=== PATIENT | female | born 1940 | race Caucasian/White ===

== ENCOUNTER 2019-03-17 12:44 | Emergency (ER) | payer OTHER, BC ==
--- OUTSIDE RECORDS SUMMARY | 2019-03-17 12:50 | XMS REPORT ---
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 Active Problem Elevated red blood cell count R71.8 Active Problem Hypothyroidism, unspecified type E03.9 Active Problem Body mass index (BMI) of 40.0-44.9 Z68.41 Active in adult Assessment Hypothyroidism, unspecified type E03.9 Active Problem Depression screening Z13.31 Active Assessment Elevated red blood cell count R71.8 Active Assessment Vitamin D deficiency E55.9 Active Problem Morbid obesity E66.01 Active Problem Mixed hyperlipidemia E78.2 Active Problem Essential hypertension I10 Active Problem Uncontrolled type 2 diabetes E11.65 Active mellitus with hyperglycemia Problem Abnormal renal function test R94.4 Active Assessment Abnormal renal function test R94.4 Active Assessment Essential hypertension I10 Active Assessment Mixed hyperlipidemia E78.2 Active Assessment Uncontrolled type 2 diabetes E11.65 Active mellitus with hyperglycemia Problem Glaucoma H40.9 Active Problem Psoriasis L40.9 Active Assessment Body mass index (BMI) of 40.0-44.9 Z68.41 Active in adult Problem Vitamin D deficiency E55.9 Active Assessment Morbid obesity E66.01 Active Problem Seasonal allergies J30.2 Active Problem History of breast cancer Z85.3 Active Medications Medication Code Code Instructions Start End Status Dosage System Date Date Amlodipine Besylate [facility] 42516888221 10 MG Orally Active 1 tablet Once a day Multivitamin [facility] 18434-38477 - Orally Active not defined FreeStyle Wilfredo 14 [facility] 39400881505 - subcutaneous April Active as directed Day Sensor Test BS once 18, daily 2018 Lipitor [facility] 93960638462 20 MG Orally Active 1 tablet in Once a day evening Flonase ND 06432328466 50 MCG/ACT Active 2 sprays in Nasally Once a each nostril day Synthroid ND 37657987249 100 MCG Orally Active 1 tablet on Once a day an empty stomach in the morning Loratadine [facility] 90094907241 10 MG Orally Active 1 tablet Once a day Triamcinolone [facility] 74048345408 0.1 % Active 1 Acetonide Externally application Twice a day to affected area Remeven [facility] 94025241207 50 % Active 1 Externally application Once a day to affected area as needed FreeStyle Wilfredo [facility] 50300085725 - subcutaneous April Active as directed Sensor System Test BS once 18, daily and prn 2019 Metoprolol Tartrate [facility] 47934923852 50 MG Orally Active 1 tablet Twice a day with food Hydrochlorothiazide [facility] 82858080479 25 MG Orally Active 1 tablet in Once a day the morning MetFORMIN HCl ER [facility] 31295909248 500 MG Orally Active 1 tablet Once a day for diabetes Vitamin D [facility] 74755840992 1000 UNIT Active 1 tablet Orally Once a day Aspir-Low [facility] 60304656699 81 MG Orally Active 1 tablet Once a day Owdxqaks-Jwjfqsxqg-Wy [facility] 45753287560 3.5-81512-5.1 Active 1 drop into xameth Ophthalmic affected eye Four times a day Results No Known Results Summary Purpose eClinicalWorks Submission
[2019-03-17] MEDS ORDERED: HYDROCODONE/APAP 10/325 TAB ONE (14:15)
[2019-03-17] MEDS ORDERED: ONDANSETRON 4 MG (ODT) TAB ONE (14:16)
--- NOTE | 2019-03-17 14:35 | RAD REPORT ---
EXAM DESCRIPTION: RAD - Shoulder Left 2 View - 03/17/2019 2:12 pm CLINICAL HISTORY: Left shoulder pain status post fall FINDINGS: Mildly displaced humeral neck fracture No dislocation. Osteoporosis
--- NOTE | 2019-03-17 15:10 | ER ---
Nurse's Notes [facility] Name: Alissa Jewell Age: 78 yrs Sex: Female : 1940 Arrival Date: 03/17/2019 Time: 12:49 Bed 13 Private MD: Diagnosis: Humerus Fracture Presentation: 03/17 13:05 Presenting complaint: Patient states: i was coming in my door with a rolling basket, tw2 and i do this all the time after i shop for groceries and i turned to shut the door, and the next thing i know i was on my back i must have tripped over part of the basket, denies LOC. i landed right on my shoulder. Transition of care: patient was not received from another setting of care. Onset of symptoms was March 17, 2019. Risk Assessment: Do you want to hurt yourself or someone else? Patient reports no desire to harm self or others. Initial Sepsis Screen: Does the patient meet any 2 criteria? No. Patient's initial sepsis screen is negative. Does the patient have a suspected source of infection? No. Patient's initial sepsis screen is negative. Care prior to arrival: None. 13:05 Method Of Arrival: Ambulatory tw2 13:05 Acuity: GERA 4 tw2 Triage Assessment: 13:07 General: Appears in no apparent distress. uncomfortable, obese, well groomed, Behavior tw2 is calm, cooperative, appropriate for age. Pain: Complains of pain in LEFT shoulder. Historical: - Allergies: 13:10 PENICILLINS; tw2 - Home Meds: 13:10 metoprolol tartrate 50 mg Oral tab 1 tab 2 times per day [Active]; levothyroxine 100 tw2 mcg tab 1 tab once daily [Active]; hydrochlorothiazide 25 mg Oral tab 1 tab once daily [Active]; amlodipine 10 mg tab 1 tab once daily [Active]; atorvastatin 20 mg oral tab 1 tab once daily [Active]; - PMHx: 13:10 Hypertension; Hypothyroidism; tw2 - Immunization history:: Adult Immunizations. - Coronavirus screen:: The patient has NOT traveled to [place], [place], or [place] in the past 14 days. - Social history:: Smoking status: . - Ebola Screening: : Patient denies travel to an Ebola-affected area in the 21 days before illness onset. Screenin:26 Abuse screen: Denies threats or abuse. Denies injuries from another. Nutritional ca1 screening: No deficits noted. Tuberculosis screening: No symptoms or risk factors identified. Fall Risk Fall in past 12 months (25 points). Total Escalante Fall Scale indicates. Assessment: 13:26 General: Appears in no apparent distress. comfortable, Behavior is calm, cooperative, ca1 appropriate for age. Pain: Complains of pain in anterior aspect of left shoulder Pain currently is 8 out of 10 on a pain scale. Neuro: Level of Consciousness is awake, alert, obeys commands, Oriented to person, place, time, situation, Appropriate for age. Derm: Skin is intact, is healthy with good turgor, Skin is pink, warm \T\ dry. Musculoskeletal: Circulation, motion, and sensation intact. Capillary refill < 3 seconds, Range of motion: limited in left shoulder. 14:31 Reassessment: Patient appears in no apparent distress at this time. Patient and/or ca1 family updated on plan of care and expected duration. Pain level reassessed. Patient is alert, oriented x 3, equal unlabored respirations, skin warm/dry/pink. Pt from Xray. 15:25 Reassessment: Patient is alert, oriented x 3, equal unlabored respirations, skin ca1 warm/dry/pink. Vital Signs: 13:07 BP 152 / 89; Pulse 58; Resp 17; Temp 97.9(TE); Pulse Ox 95% on R/A; Weight 90.72 kg tw2 (R); Height 5 ft. 1 in. (154.94 cm); Pain 8/10; 15:25 BP 142 / 86; Pulse 61; Resp 17 S; Pulse Ox 96% on R/A; ca1 13:07 Body Mass Index 37.79 (90.72 kg, 154.94 cm) tw2 13:07 when i start to move it it goes to a 10 tw2 ED Course: 12:49 Patient arrived in ED. rg4 13:07 Triage completed. tw2 13:07 Arm band placed on. tw2 13:13 Jermaine Starks PA is PHCP. rosario 13:13 Yeyo Begum MD is Attending Physician. [facility] 13:20 Meche Crowley RN is Primary Nurse. ca1 13:26 Patient has correct armband on for positive identification. Bed in low position. Call ca1 light in reach. Side rails up X 1. Pulse ox on. NIBP on. 13:26 No provider procedures requiring assistance completed. Patient did not have IV access ca1 during this emergency room visit. 14:58 Sling applied to left arm. ca1 Administered Medications: 14:30 Drug: Zofran 4 mg Route: PO; ca1 15:00 Follow up: Response: No adverse reaction; Nausea is decreased ca1 14:32 Drug: Leroy 10 mg-325 mg 1 tabs {Note: RASS - 0.} Route: PO; ca1 15:00 Follow up: Response: No adverse reaction; Pain is decreased; RASS: Alert and Calm (0) ca1 Outcome: 15:10 Discharge ordered by . rosario 15:36 Discharged to home ambulatory, with family. ca1 15:36 Condition: stable 15:36 Discharge instructions given to patient, family, Instructed on discharge instructions, follow up and referral plans. no drinking with medication, no driving heavy equipment, medication usage, Demonstrated understanding of instructions, follow-up care, medications, Prescriptions given X 1. 15:37 Patient left the ED. ca1 Signatures: Jermaine Starks PA PA jmm Wise, Tara, RN RN tw2 [facility] Meche Crowley RN RN ca1
--- NOTE | 2019-03-17 15:11 | EDPHYS ---
Physician Documentation [facility] Name: Alissa Jewell Age: 78 yrs Sex: Female : 1940 Arrival Date: 03/17/2019 Time: 12:49 Bed 13 Private MD: ED Physician Yeyo Begum HPI: 03/17 13:35 This 78 yrs old Female presents to ER via Ambulatory with complaints of jmm Shoulder Pain. 13:35 The patient or guardian complains of an injury, pain. Onset: The symptoms/episode jmm began/occurred acutely, just prior to arrival. Modifying factors: the symptoms are alleviated by remaining still, The symptoms are aggravated by movement. Associated signs and symptoms: Pertinent positives: Numbness in left hand. This is a 78 year old female with a history of htn, hypothyroidism that presents to the ED with complaints of left shoulder pain after fall just prior to arrival. Patient fell from a standing position. Denies other injury. . Historical: - Allergies: 13:10 PENICILLINS; tw2 - Home Meds: 13:10 metoprolol tartrate 50 mg Oral tab 1 tab 2 times per day [Active]; levothyroxine 100 tw2 mcg tab 1 tab once daily [Active]; hydrochlorothiazide 25 mg Oral tab 1 tab once daily [Active]; amlodipine 10 mg tab 1 tab once daily [Active]; atorvastatin 20 mg oral tab 1 tab once daily [Active]; - PMHx: 13:10 Hypertension; Hypothyroidism; tw2 - Immunization history:: Adult Immunizations. - Coronavirus screen:: The patient has NOT traveled to [place], [place], or [place] in the past 14 days. - Social history:: Smoking status: . - Ebola Screening: : Patient denies travel to an Ebola-affected area in the 21 days before illness onset. ROS: 13:35 Constitutional: Negative for fever, chills, and weight loss, Cardiovascular: Negative jmm for chest pain, palpitations, and edema, Respiratory: Negative for shortness of breath, cough, wheezing, and pleuritic chest pain. 13:35 MS/extremity: Positive for injury or acute deformity, pain. 13:35 All other systems are negative. Exam: 13:35 Constitutional: This is a well developed, well nourished patient who is awake, alert, jmm and in no acute distress. Head/Face: atraumatic. Eyes: EOMI, no conjunctival erythema appreciated ENT: Moist Mucus Membranes Neck: Trachea midline, Supple Chest/axilla: Normal chest wall appearance and motion. Cardiovascular: Regular rate and rhythm. 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 full radial pulse, compartments are soft, NVI. Vital Signs: 13:07 BP 152 / 89; Pulse 58; Resp 17; Temp 97.9(TE); Pulse Ox 95% on R/A; Weight 90.72 kg tw2 (R); Height 5 ft. 1 in. (154.94 cm); Pain 8/10; 15:25 BP 142 / 86; Pulse 61; Resp 17 S; Pulse Ox 96% on R/A; ca1 13:07 Body Mass Index 37.79 (90.72 kg, 154.94 cm) tw2 13:07 when i start to move it it goes to a 10 tw2 Procedures: 15:08 Splinting: Splint applied to left arm using sling, Examined by me, post splint [facility] application: neurovascular intact, 2+ distal pulses palpable, brisk capillary refill noted, Patient tolerated well. MDM: 13:35 Patient medically screened. [facility] 15:07 Data reviewed: vital signs, nurses notes. Counseling: I had a detailed discussion with rosario the patient and/or guardian regarding: the historical points, exam findings, and any diagnostic results supporting the discharge/admit diagnosis, radiology results, the need for outpatient follow up, to return to the emergency department if symptoms worsen or persist or if there are any questions or concerns that arise at home. 15:08 ED course: Patient advised to follow up with ortho for further evaluation. Patient [facility] advised to return to the ED with symptoms worsen. Patient understood and agrees with the plan of care. . 03/17 13:42 Order name: Shoulder Left (2 View) XRAY [facility] 03/17 14:44 Order name: Sling; Complete Time: 14:57 pako Administered Medications: 14:30 Drug: Zofran 4 mg Route: PO; ca1 15:00 Follow up: Response: No adverse reaction; Nausea is decreased ca1 14:32 Drug: Pierre Part 10 mg-325 mg 1 tabs {Note: RASS - 0.} Route: PO; ca1 15:00 Follow up: Response: No adverse reaction; Pain is decreased; RASS: Alert and Calm (0) ca1 Disposition: 16:30 Co-signature as Attending Physician, Yeyo Begum MD. rn Disposition: 03/17/19 15:10 Discharged to Home. Impression: Humerus Fracture. - Condition is Stable. - Discharge Instructions: Humerus Fracture Treated With Immobilization, [id number]. - Prescriptions for Tylenol- Codeine #3 300-30 mg Oral Tablet - take 1 tablet by ORAL route every 6 hours As needed; 20 tablet. - Medication Reconciliation Form, Thank You Letter, Antibiotic Education, Prescription Opioid Use form. - Follow up: Private Physician; When: 2 - 3 days; Reason: Recheck today's complaints, Continuance of care, Re-evaluation by your physician. Signatures: Dispatcher [employer] EDMS Jermaine Starks PA PA jmm Nieto, Roman, MD MD rn Юлия Dao RN RN tw2 Meche Crowley RN RN ca1 Corrections: (The following items were deleted from the chart) 15:37 15:10 03/17/2019 15:10 Discharged to Home. Impression: Humerus Fracture. Condition is ca1 Stable. Forms are Medication Reconciliation Form, Thank You Letter, Antibiotic Education, Prescription Opioid Use. Follow up: Private Physician; When: 2 - 3 days; Reason: Recheck today's complaints, Continuance of care, Re-evaluation by your physician. rosario
[2019-03-17 15:53] VITALS: TEMP 97.9
[2019-03-17 15:54] VITALS: BP 142/86; O2SAT 96
== END 2019-03-17 15:37 | disposition home or self-care (01) ==
LOC: ER 12:44
DX: S42.212A Unspecified displaced fracture of surgical neck of left humerus, initial encounter for closed fracture (principal); W01.0XXA Fall on same level from slipping, tripping and stumbling without subsequent striking against object, initial encounter; Y93.89 Activity, other specified; Y92.018 Other place in single-family (private) house as the place of occurrence of the external cause; Z88.0 Allergy status to penicillin; I10 Essential (primary) hypertension; E03.9 Hypothyroidism, unspecified
CPT/HCPCS: 99284

== ENCOUNTER 2021-10-20 18:51 | Emergency (ER) | payer OTHER, BC ==
--- OUTSIDE RECORDS SUMMARY | 2021-10-20 18:55 | XMS REPORT | Continuity of Care Document ---
:1940 Author Organization [facility] t Address [address] [place] [address] Care Team Providers Name Role Phone Asked, No Pcp Primary Care Physician Unavailable Diane Whyte Attending Clinician Unavailable Josy Quiros Attending Clinician Unavailable Sofy Mejia Attending Clinician Unavailable ARACELI JAMES Attending Clinician Unavailable ARACELI JAMES Attending Clinician Unavailable Payers Payer Name Policy Type Policy Number Effective Date Expiration Date S ource Problems This patient has no known problems. Allergies, Adverse Reactions, Alerts Allergy Allergy Status Severity Reaction(s) Onset Inactive Treating Comm ents Source Name Type Date Date Clinician penicill Adverse Active Info Not Commo n in Reaction Available Spiri t - [facility] Social History Social Habit Start Date Stop Date Quantity Comments Source Sex Assigned At [birth year] [facility] 00:00:00 00:00:00 Smoking Status Start Date Stop Date Source Tobacco smoking consumption unknown [facility] Medications Ordered Filled Start Stop Current Ordering Indication Dosage Frequency Signature Comments Components Source Medication Medication Date Date Medication? Clinician (SIG) Name Name FreeStyle FreeStyle 2019-0 Yes Sofy as Co mmon Wilfredo 14 Wilfredo 14 3-18 Millender directed Spirit Day Sensor Day Sensor 00:00: - [facility] 00 [facility] FreeStyle FreeStyle 2019-0 Yes Sofy as Co mmon Wilfredo Wilfredo 3-18 Millender directed Spir it Sensor Sensor 00:00: - [facility] System System 00 [facility] MetFORMIN MetFORMIN 2019-0 Yes Sofy 1 tablet Common HCl ER HCl ER 3-18 Millender Spirit 00:00: - [facility] 00 [facility] Vitamin D Vitamin D Yes Sofy 1 tablet Common Millender [facility] Multivitami Multivitami Yes Sofy not Common n n Millender defined [facility] Lipitor Lipitor Yes Sofy 1 tablet Comm on Millender in evening Spir it - CHI [facility] Aspir-Low Aspir-Low Yes Sofy 1 tablet Common Millender [facility] Hydrochloro Hydrochloro Yes Sofy 1 tablet Common thiazide thiazide Millender in the Spirit morning [facility] Flonase Flonase Yes Sofy 2 sprays Comm on Millender in each Spirit nostril [facility] Remeven Remeven Yes Sofy 1 Common Millender applicatio Spir it n to - [facility] affected [facility] Synthroid Synthroid Yes Sofy 1 tablet Common Millender on an Spirit empty - [facility]I stomach in [facility] Triamcinolo Triamcinolo Yes Sofy 1 Common ne ne Millender applicatio Spir it Acetonide Acetonide n to - CHI affected [facility] Amlodipine Amlodipine Yes Sofy 1 tablet Common Besylate Besylate Millender Sp greg [facility] Loratadine Loratadine Yes Sofy 1 tablet Common Millender [facility] Neomycin-Po Neomycin-Po Yes Sofy 1 drop Common lymyxin-Dex lymyxin-Dex Millender into Spirit ameth ameth affected - [facility] eye [facility] Metoprolol Metoprolol Yes Sofy 1 tablet Common Tartrate Tartrate Millender with food [facility] Atorvastati Atorvastati Yes Sofy TAKE 1 Common n Calcium n Calcium Millender TABLET BY Spirit MOUTH ONCE - [facility] DAILY IN [facility] Levothyroxi Levothyroxi Yes Sofy TAKE 1 Common ne Sodium ne Sodium Millender TABLET BY Spirit MOUTH ONCE - CHI DAILY ON St AN EMPTY [facility] STOMACH IN Medical THE [place] MORNING Procedures Procedure Date / Time Performed Performing Clinician Sourc e CT ORBITS WO CONTRAST 2021-08-14 15:37:14 Araceli James [facility] CT TEMPORAL BONE WO 2021-08-14 15:36:51 Araceli James [facility] CONTRAST Plan of Care Planned Activity Planned Date Details Comments Source Future Scheduled 2021-10-18 65+ [facility] 14[facility]47:23 VACCINE (1 - PCV) [code = 65+ PNEUMOCOCCAL VACCINE (1 - PCV)] Future Scheduled 2021-10-[address] [facility] Test 14:47:23 [code = INFLUENZA VACCINE] Future Scheduled 2021-10-18 HEPATITIS B VACCINES Met [facility] Test 14:47:23 (1 of 3 - 3-dose series) [code = HEPATITIS B VACCINES (1 of 3 - 3-dose series)] Future Scheduled 2021-10-18 COVID-19 VACCINE (#1) [facility] Test 14:47:23 [code = COVID-19 VACCINE (#1)] Future Scheduled 2021-10-18 Hepatitis C screening [facility] Test 14:47:23 (procedure) [code = [id number]] Future Scheduled 2021-10-18 SHINGLES VACCINES (1 Met [facility] Test 14:47:23 of 2) [code = SHINGLES VACCINES (1 of 2)] Encounters Start End Encounter Admission Attending Care Care Encounter Source Date/Time Date/Time Type Type Clinicians Facility Department ID 2021-04-15 Outpatient Whyte, [facility] [id number] Common 10:45:01 Diane [facility] 2021-04-12 Outpatient Whyte, [facility] [id number] Common 08:05:00 Diane [facility] 2021-04-10 Outpatient Frontier, [facility] [id number] Common 08:12:01 Josy [facility] 2021-03-06 Outpatient [facility], [facility] [id number] Common 14:23:24 Josy 18807 [facility] 2021-03-06 Outpatient Frontier, [facility] [id number] Common 13:31:47 Josy [id number] [facility] 2021-03-06 Outpatient Frontier, STLMLC ST[facility] [id number] Common 12:25:48 Josy 13331 [facility] 2021-03-06 Outpatient STLMLC [facility] [id number] Common 12:16:10 85030 [facility] 2021-03-06 Outpatient STLMLC [facility] [id number] Common 12:11:31 97920 [facility] 2021-03-06 Outpatient Millender, STLMLC STLMLC [id number] Common 11:33:13 Sofy [id number] [facility] 2021-03-06 Outpatient Millender, STLMLC STLMLC [id number] Common 11:33:03 Sofy [id number] [facility] 2021-03-06 Outpatient Millender, STLMLC STLMLC [id number] Common 11:32:45 Sofy 31823 [facility] 2021-03-06 Outpatient Millender, STLMLC STLMLC [id number] Common 11:07:36 Sofy 79379 [facility] 2021-03-06 Outpatient Millender, STLMLC STLMLC [id number] Common 11:07:21 Sofy 67889 [facility] 2021-03-06 Outpatient Millender, STLMLC STLMLC [id number] Common 11:07:08 Sofy 27379 [facility] 2021-03-06 Outpatient Millender, STLMLC STLMLC [id number] Common 11:06:34 Sofy [id number] [facility] 2021-10-03 2021-10-03 Outpatient DAVE [id number] 08:21:00 15:15:00 ARACELI 2021-08-21 2021-08-21 ambulatory STLMLC STLMLC [id number] Common 00:00:00 00:00:00 [facility] 2021-08-14 2021-08-14 Outpatient DAVE [facility] [id number] [place] 00:00:00 00:00:[address] [place] [address] 2021-08-14 2021-08-14 Outpatient DAVE, [facility] [id number] [place] 00:00:00 00:00:00 ARACELI [address] 2021-08-05 2021-08-05 ambulatory STLMLC STLMLC [id number] Common 00:00:00 00:00:00 [facility] 2021-08-05 2021-08-05 Transcribe James [id number] Methodi 00:00:00 00:00:00 Orders Araceli L. [address].1.[address] 3.430.2.7 Hospit a .3.583254 l .8 2021-04-12 2021-04-12 ambulatory STLMLC STLMLC [id number] Common 00:00:00 00:00:00 [facility] 2021-01-24 2021-01-24 ambulatory STLMLC STLMLC [id number] Common 00:00:00 00:00:00 [facility] 2021-01-24 2021-01-24 ambulatory STLMLC STLMLC [id number] Common 00:00:00 00:00:00 [facility] 2021-01-17 2021-01-17 ambulatory STLMLC STLMLC [id number] Common 00:00:00 00:00:00 [facility] 2020-10-29 2020-10-29 Outpatient STLMLC STLMLC [id number] Common 00:00:00 00:00:00 [facility] 2020-10-26 2020-10-26 Outpatient STLMLC STLMLC [id number] Common 00:00:00 00:00:00 [facility] 2020-10-18 2020-10-18 Outpatient STLMLC STLMLC [id number] Common 00:00:00 00:00:00 [facility] 2020-09-05 2020-09-05 Outpatient STLMLC STLMLC [id number] Common 00:00:00 00:00:00 [facility] 2020-05-22 2020-05-22 Outpatient STLMLC STLMLC [id number] Common 00:00:00 00:00:00 [facility] 2020-03-07 2020-03-07 Outpatient STLMLC STLC [id number] Common 00:00:00 00:00:00 [facility] 2019-09-05 2019-09-05 [facility] [id number] Common 11:00:00 11:00:00 [facility] [address] [facility] 2019-05-12 2019-05-12 [facility] [id number] Common 13:01:00 13:01:00 [facility] 2019-04-28 2019-04-28 [facility] [id number] Common 16:32:00 16:32:00 t [facility] Sp[facility] t and [facility] 2019-04-20 2019-04-20 [facility] [id number] Common 09:00:00 09:00:00 t [facility] Bone [facility] Spiri t and [facility] 2019-04-11 2019-04-11 [facility] [id number] Common 15:30:00 15:30:00 t [facility] Sp[facility] t [facility] 2019-03-24 2019-03-24 Out[facility] [id number] Common 09:45:00 09:45:00 [facility] [address] [facility] 2019-03-21 2019-03-21 Outpatient [facility] [id number] Common 08:00:00 08:00:00 t [facility] Bone [facility] Spiri t and [facility] 2018-10-14 2018-10-14 [facility] [id number] Common 08:40:00 08:40:00 [facility] [address] [facility] 2018-08-03 2018-08-03 Out[facility] [id number] Common 08:45:00 08:45:[address] [facility] 2018-07-27 2018-07-27 [facility] [id number] Common 09:40:00 09:40:[address] [facility] 2018-04-26 2018-04-26 Out[facility] [id number] Common 13:47:00 13:47:[address] [facility] 2018-04-26 2018-04-26 Outpatient [facility] [id number] Common 08:30:00 08:30:[address] [facility] 2017-11-16 2017-11-16 Out[facility] [id number] Common 09:15:00 09:15:[address] [facility] 2017-06-02 2017-06-02 [facility] [id number] Common 15:00:00 15:00:[address] [facility] Results This patient has no known results.
--- NOTE | 2021-10-20 19:26 | RAD REPORT ---
EXAM DESCRIPTION: CT - Head Brain Wo Cont - 10/20/2021 7:19 pm CLINICAL HISTORY: adf Headache, drowsiness COMPARISON: No comparisons TECHNIQUE: All CT scans are performed using dose optimization technique as appropriate and may inclu de automated exposure control or mA/KV adjustment according to patient size. FINDINGS: No intracranial hemorrhage, hydrocephalus or extra-axial fluid collection.No areas of brai n edema or evidence of midline shift. Postsurgical changes are seen involving the left mastoid with fluid present. The calvarium is intact. IMPRESSION: No acute intracranial abnormality. Postsurgical changes involve the left mastoid with fluid present.
--- NOTE | 2021-10-20 20:03 | RAD REPORT ---
EXAM DESCRIPTION: RAD - Chest Single View - 10/20/2021 7:48 pm CLINICAL HISTORY: MALAISE Chest pain. COMPARISON: No comparisons FINDINGS: Portable technique limits examination quality. Mild interstitial pulmonary edema is suspected. The heart is mildly enlarged in size. No displaced fr actures. IMPRESSION: Mild CHF.
[2021-10-20 20:07] LABS: Absolute Lymphocytes (CBC) 1.4 K/uL (0.7-4.9); Hematocrit 44.3 % (36.0-45.0); MCV 88.1 fL (80-100); RBC Red Blood Cell Count 5.03 M/uL (3.86-4.86)
[2021-10-20 20:25] LABS: Protime INR 1.04
[2021-10-20 20:32] LABS: Potassium 3.5 mmol/L (3.5-5.1); Troponin High Sensitivity 12.4 pg/mL (<58.9)
--- NOTE | 2021-10-20 20:54 | ER ---
Nurse's Notes [facility] Name: Alissa Jewell Age: 80 yrs Sex: Female : 1940 Arrival Date: 10/20/2021 Time: 18:53 Bed 5 Private MD: Diagnosis: Matoid effusion;Fluid overload Presentation: 10/20 18:57 Chief complaint: Patient states: woke up this am \T\ 0400 with BOOTHE and strange felling to [facility] l side of lips. States sensation left and this afternoon she noted unable to move left side of lips not working as well and numbness sensation started. Cochlear implant placed 2wks ago and was told this may be a side effect. Coronavirus screen: Vaccine status: Patient reports receiving the 2nd dose of the covid vaccine. Ebola Screen: Patient negative for fever greater than or equal to 101.5 degrees Fahrenheit, and additional compatible Ebola Virus Disease symptoms Patient denies exposure to infectious person. Patient denies travel to an Ebola-affected area in the 21 days before illness onset. Initial Sepsis Screen: Does the patient meet any 2 criteria? No. Patient's initial sepsis screen is negative. Does the patient have a suspected source of infection? No. Patient's initial sepsis screen is negative. Risk Assessment: Do you want to hurt yourself or someone else? Patient reports no desire to harm self or others. Onset of symptoms. 18:57 Method Of Arrival: EMS: [place] [address] 18:57 Acuity: GERA 2 [facility] Triage Assessment: 19:04 General: Appears in no apparent distress. Behavior is calm. Pain: Denies pain. EENT: No [facility] deficits noted. Neuro: Level of Consciousness is awake, alert, obeys commands, Oriented to person, place, time, situation, Senior Software Development Manager are equal bilaterally Moves all extremities. Gait is steady, Speech is normal, Facial droop on left, Facial symmetry: tongue is midline, slight droop to l lips. . Pupils are PERRLA, Numbness in left corner of mouth. Cardiovascular: No deficits noted. Respiratory: No deficits noted. GI: Abdomen is flat, Bowel sounds. Historical: - Allergies: 19:02 PENICILLINS; [facility] - PMHx: 19:02 Hypertension; Hypothyroidism; [facility] - Immunization history:: Adult Immunizations up to date. - Social history:: Smoking status: Patient denies any tobacco usage or history of. Screenin:06 Abuse screen: Denies threats or abuse. Denies injuries from another. Nutritional [facility] screening: No deficits noted. Tuberculosis screening: No symptoms or risk factors identified. Fall Risk None identified. Assessment: 19:56 General: Appears comfortable, Behavior is cooperative. Pain: Denies pain. Neuro: Level aa9 of Consciousness is awake, alert, obeys commands, Oriented to person, place, time, situation, Speech is normal, Facial symmetry appears normal. Respiratory: Airway is patent Trachea midline Respiratory effort is even, unlabored, Respiratory pattern is regular, symmetrical. Vital Signs: 18:57 BP 187 / 76; Pulse 67; Resp 17; Temp 97.8(O); Pulse Ox 98% ; Weight 90.72 kg; Height 5 6 ft. 2 in. (157.48 cm); Pain 0/10; 19:35 BP 152 / 67; Pulse 57; Resp 18 S; Pulse Ox 98% on R/A; Pain 0/10; aa9 20:00 BP 161 / 70; Pulse 55; Resp 17 S; Pulse Ox 98% on R/A; aa9 21:00 BP 149 / 73; Pulse 58; Resp 16 S; Pulse Ox 99% on R/A; aa9 18:57 Body Mass Index 36.58 (90.72 kg, 157.48 cm) [facility] NIH Stroke Scale Scores: 19:06 NIHSS Score: 1 9 ED Course: 18:53 Patient arrived in ED. eb 18:55 Topher Holcomb DO is Attending Physician. ms3 18:57 [facility] 9 19:02 Triage completed. 6 19:06 Arm band placed on right wrist. Patient placed in an exam room, on a stretcher, on 6 alarm security or surveillance monitor, on pulse oximetry. 19:06 Placed in gown. Bed in low position. Call light in reach. Side rails up X2. 6 19:06 No provider procedures requiring assistance completed. 6 19:11 Santiago Montana, RN is Primary Nurse. as6 19:20 CT Head Brain wo Cont In Process Unspecified. EDMS 19:48 Inserted saline lock: 20 gauge in left antecubital area, using aseptic technique. Blood aa9 collected. 19:50 XRAY Chest (1 view) In Process Unspecified. EDMS 19:55 Troponin High Sensitivity Sent. aa9 19:55 Basic Metabolic Panel Sent. aa9 19:55 CBC with Diff Sent. aa9 19:55 Protime (+inr) Sent. aa9 19:55 Ptt, Activated Sent. aa9 19:58 Warm blanket given. aa9 20:07 PHCP role handed off by Isiah Baig snw 20:07 Deb May FNP-C is PHCP. snw 21:25 IV discontinued, intact, bleeding controlled, No redness/swelling at site. Pressure aa9 dressing applied. Administered Medications: 21:09 Drug: Rocephin (cefTRIAXone) 1 grams Route: IV; Rate: calculated rate; Site: left aa9 antecubital; 21:22 Follow up: Response: No adverse reaction; IV Status: Completed infusion; IV Intake: [id number] 21:10 Drug: LaSIX (furosemide) 20 mg Route: PO; aa9 21:23 Follow up: Response: No adverse reaction aa9 Medication: 21:25 VIS not applicable for this client. aa9 Intake: 21:22 IV: 10ml; Total: 10ml. aa9 Outcome: 20:54 Discharge ordered by MD. snw 21:25 Discharged to home via wheelchair, with family. aa9 21:25 Condition: stable 21:25 Discharge instructions given to patient, family, Instructed on discharge instructions, follow up and referral plans. medication usage, Demonstrated understanding of instructions, follow-up care, medications, Prescriptions given X 1. 21:26 Patient left the ED. aa9 NIH Stroke Scale - NIH Stroke Score Date: 10/20/2021 Time: 19:06 Total Score = 1 1a. Level of Consciousness (LOC) - 0(Alert) 1b. Level of Consciousness (LOC) (Month \T\ Age) - 0(Both) 1c. LOC Commands (Open \T\ Closes Eyes/Senior Oracle Adf Developer) - 0(Both) 2. Best Gaze (Lateral Gaze Paresis) - 0(Normal) 3. Visual Field Loss - 0(No visual loss) 4. Facial Palsy - 0(Normal) 5a. Left Arm: Motor (10-second hold) - 0(No drift) 5b. Right Arm: Motor (10-second hold) - 0(No drift) 6a. Left Leg: Motor (5-second hold - always test supine) - 0(No drift) 6b. Right Leg: Motor (5-second hold - always test supine) - 0(No drift) 7. Limb Ataxia (finger/nose \T\ heel/long - test with eyes open) - 0(Absent) 8. Sensory Loss (pinprick arms/legs/face) - 1(Mild to moderate loss) 9. Best Language: Aphasia (description/naming/reading) - 0(No aphasia) 10. Dysarthria (speech clarity - read or repeat words) - 0(Normal) 11. Extinction and Inattention (visual/tactile/auditory/spatial/personal) - 0(No abnormality) Initials: jl9 Signatures: Dispatcher [employer] EDMS Deb May, LAW WRITER-C LAW WRITER-Csnw Shelia Morel Marcus, DO ms3 Santiago Montana, ELLA RN as6 Daina Redmond RN RN 6 Isiah Baig jl9 Estefanía Thao, RN RN aa9 Corrections: (The following items were deleted from the chart) 20:01 19:57 BP 152 / 67; Pulse 57bpm; Resp 18bpm; Spontaneous; Pulse Ox 98% RA; Pain aa9 0; aa9
--- NOTE | 2021-10-20 20:54 | EDPHYS ---
Physician Documentation [facility] Name: Alissa Jewell Age: 80 yrs Sex: Female : 1940 Arrival Date: 10/20/2021 Time: 18:53 Bed 5 Private MD: ED Physician Topher Holcomb HPI: 10/20 18:59 This 80 yrs old Female presents to ER via EMS with complaints of left facial jl9 tingling. Patient reports that she woke up at 4am to her face feeling a bit off. Patient had a cochlear implant on the left side 2 weeks ago and was told she may experienc some symptoms as such. . 18:59 Onset: The symptoms/episode began/occurred this morning, at 04:00. Severity of jl9 symptoms: Pain is currently a 0 / 10. The patient has not experienced similar symptoms in the past. Historical: - Allergies: 19:02 PENICILLINS; jh6 - PMHx: 19:02 Hypertension; Hypothyroidism; jh6 - Immunization history:: Adult Immunizations up to date. - Social history:: Smoking status: Patient denies any tobacco usage or history of. ROS: 19:01 Constitutional: Negative for fever, chills, and weight loss, Eyes: Negative for injury, jl9 pain, redness, and discharge, ENT: Negative for injury, pain, and discharge, Neck: Negative for injury, pain, and swelling, Cardiovascular: Negative for chest pain, palpitations, and edema, Respiratory: Negative for shortness of breath, cough, wheezing, and pleuritic chest pain, Abdomen/GI: Negative for abdominal pain, nausea, vomiting, diarrhea, and constipation, Back: Negative for injury and pain, : Negative for injury, bleeding, discharge, and swelling, MS/Extremity: Negative for injury and deformity, Skin: Negative for injury, rash, and discoloration. 19:01 Psych: Negative for depression, anxiety, suicide ideation, homicidal ideation, and hallucinations, Allergy/Immunology: Negative for hives, rash, and allergies, Endocrine: Negative for neck swelling, polydipsia, polyuria, polyphagia, and marked weight changes, Hematologic/Lymphatic: Negative for swollen nodes, abnormal bleeding, and unusual bruising. 19:01 Neuro: Positive for tingling. Exam: 19:02 Constitutional: This is a well developed, well nourished patient who is awake, alert, jl9 and in no acute distress. Head/Face: Normocephalic, atraumatic. Eyes: Pupils equal round and reactive to light, extra-ocular motions intact. Lids and lashes normal. Conjunctiva and sclera are non-icteric and not injected. Cornea within normal limits. Periorbital areas with no swelling, redness, or edema. ENT: Mucous membranes moist. Neck: Trachea midline, no thyromegaly or masses palpated, and no cervical lymphadenopathy. Supple, full range of motion without nuchal rigidity, or vertebral point tenderness. No Meningismus. Chest/axilla: Normal chest wall appearance and motion. Nontender with no deformity. No lesions are appreciated. Cardiovascular: Regular rate and rhythm with a normal S1 and S2. No gallops, murmurs, or rubs. Normal PMI, no JVD. No pulse deficits. Respiratory: Lungs have equal breath sounds bilaterally, clear to auscultation and percussion. No rales, rhonchi or wheezes noted. No increased work of breathing, no retractions or nasal flaring. Abdomen/GI: Soft, non-tender, with normal bowel sounds. No distension or tympany. No guarding or rebound. No evidence of tenderness throughout. Back: No spinal tenderness. No costovertebral tenderness. Full range of motion. Skin: Warm, dry with normal turgor. Normal color with no rashes, no lesions, and no evidence of cellulitis. MS/ Extremity: Pulses equal, no cyanosis. Neurovascular intact. Full, normal range of motion. Neuro: Awake and alert, GCS 15, oriented to person, place, time, and situation. Cranial nerves II-XII grossly intact. Motor strength 5/5 in all extremities. Sensory grossly intact. Cerebellar exam normal. Normal gait. Psych: Awake, alert, with orientation to person, place and time. Behavior, mood, and affect are within normal limits. Vital Signs: 18:57 BP 187 / 76; Pulse 67; Resp 17; Temp 97.8(O); Pulse Ox 98% ; Weight 90.72 kg; Height 5 jh6 ft. 2 in. (157.48 cm); Pain 0/10; 19:35 BP 152 / 67; Pulse 57; Resp 18 S; Pulse Ox 98% on R/A; Pain 0/10; aa9 20:00 BP 161 / 70; Pulse 55; Resp 17 S; Pulse Ox 98% on R/A; aa9 21:00 BP 149 / 73; Pulse 58; Resp 16 S; Pulse Ox 99% on R/A; aa9 18:57 Body Mass Index 36.58 (90.72 kg, 157.48 cm) jh6 NIH Stroke Scale Scores: 19:06 NIHSS Score: 1 9 MDM: 18:57 Patient medically screened. [facility] 19:36 Test interpretation: by ED physician or midlevel provider: ECG, SB- 59bpm. 9 20:56 Data reviewed: vital signs, nurses notes. Data interpreted: Pulse oximetry: on room air snw is 98 %. Interpretation: normal. Counseling: I had a detailed discussion with the patient and/or guardian regarding: the historical points, exam findings, and any diagnostic results supporting the discharge/admit diagnosis, the presence of at least one elevated blood pressure reading (>120/80) during this emergency department visit, lab results, radiology results, the need for outpatient follow up, to return to the emergency department if symptoms worsen or persist or if there are any questions or concerns that arise at home. Special discussion: I have referred the patient to see his PCP for further evaluation of high blood pressure. Based on the history and exam findings, there is no indication for further emergent testing or inpatient evaluation. I discussed with the patient/guardian the need to see the ENT specialist for further evaluation of the symptoms. I discussed with the patient/guardian the need to see the primary care provider for further evaluation of the symptoms. 10/20 18:59 Order name: Basic Metabolic Panel; Complete Time: 20:35 [facility] 10/20 18:59 Order name: CBC with Diff; Complete Time: 21:03 [facility] 10/20 18:59 Order name: Protime (+inr); Complete Time: 20:35 [facility] 10/20 18:59 Order name: Ptt, Activated; Complete Time: 20:35 [facility] 10/20 18:59 Order name: Troponin High Sensitivity; Complete Time: 20:35 [facility] 10/20 20:00 Order name: Glucose, Ancillary Testing; Complete Time: 20:08 [facility] 10/20 18:59 Order name: EKG; Complete Time: 18:59 [facility] 10/20 18:59 Order name: Accucheck; Complete Time: 19:55 10/20 18:59 Order name: Cardiac monitoring; Complete Time: 19:34 10/20 18:59 Order name: EKG - Nurse/Tech; Complete Time: 19:34 10/20 18:59 Order name: CT Head Brain wo Cont; Complete Time: 19:28 10/20 18:59 Order name: XRAY Chest (1 view); Complete Time: 20:08 10/20 18:59 Order name: IV Saline Lock; Complete Time: 19:55 10/20 18:59 Order name: Labs collected and sent; Complete Time: 19:55 10/20 18:59 Order name: NPO; Complete Time: 19:22 10/20 18:59 Order name: O2 Per Protocol; Complete Time: 19:35 10/20 18:59 Order name: O2 Sat Monitoring; Complete Time: 19:35 10/20 18:59 Order name: Stroke Swallow Screen; Complete Time: 19:55 Administered Medications: 21:09 Drug: Rocephin (cefTRIAXone) 1 grams Route: IV; Rate: calculated rate; Site: left aa9 antecubital; 21:22 Follow up: Response: No adverse reaction; IV Status: Completed infusion; IV Intake: 21udyt6 21:10 Drug: LaSIX (furosemide) 20 mg Route: PO; aa9 21:23 Follow up: Response: No adverse reaction aa9 Disposition: 10/21 02:34 Co-signature as Attending Physician, Topher BUSTILLO was immediately available on-site ms3 in the Emergency Department for consultation in the care of the patient. Disposition Summary: 10/20/21 20:54 Discharge Ordered Location: Home snw Condition: Stable snw Diagnosis - Matoid effusion snw - Fluid overload snw Followup: snw - With: Emergency Department - When: As needed - Reason: Worsening of condition Followup: snw - With: Private Physician - When: 2 - 3 days - Reason: Recheck today's complaints, Continuance of care, Re-evaluation by your physician Discharge Instructions: - Discharge Summary Sheet snw - Paresthesia snw - Mastoiditis, Pediatric snw - Heart Failure Eating Plan snw Forms: - Medication Reconciliation Form snw - Thank You Letter snw - Antibiotic Education snw - Prescription Opioid Use snw Prescriptions: - cefdinir 300 mg Oral capsule - take 1 capsule by ORAL route every 12 hours for 7 days; 14 capsule; Refills: 0, snw Product Selection Permitted NIH Stroke Scale - NIH Stroke Score Date: 10/20/2021 Time: 19:06 Total Score = 1 1a. Level of Consciousness (LOC) - 0(Alert) 1b. Level of Consciousness (LOC) (Month \T\ Age) - 0(Both) 1c. LOC Commands (Open \T\ Closes Eyes/Infrastructure Analyst) - 0(Both) 2. Best Gaze (Lateral Gaze Paresis) - 0(Normal) 3. Visual Field Loss - 0(No visual loss) 4. Facial Palsy - 0(Normal) 5a. Left Arm: Motor (10-second hold) - 0(No drift) 5b. Right Arm: Motor (10-second hold) - 0(No drift) 6a. Left Leg: Motor (5-second hold - always test supine) - 0(No drift) 6b. Right Leg: Motor (5-second hold - always test supine) - 0(No drift) 7. Limb Ataxia (finger/nose \T\ heel/long - test with eyes open) - 0(Absent) 8. Sensory Loss (pinprick arms/legs/face) - 1(Mild to moderate loss) 9. Best Language: Aphasia (description/naming/reading) - 0(No aphasia) 10. Dysarthria (speech clarity - read or repeat words) - 0(Normal) 11. Extinction and Inattention (visual/tactile/auditory/spatial/personal) - 0(No abnormality) Initials: jl9 Signatures: Dispatcher [employer] EDDeb Blevins, PASTER OPERATOR-C PASTER OPERATOR-Csnw Topher Holcomb DO DO ms3 Daina Redmond, RN RN jh6 Jennifer Chavira PA PA sb3 Linares, John jl9 Estefanía Thao, RN RN aa9
[2021-10-20] MEDS ORDERED: FUROSEMIDE 20 MG TABLET ONE (21:11)
[2021-10-20] MEDS ORDERED: CEFTRIAXONE 1000 MG/VIAL ONE (21:11)
[2021-10-20 23:26] VITALS: TEMP 97.8
[2021-10-20 23:33] VITALS: BP 149/73; O2SAT 99
--- NOTE | 2021-10-21 15:07 | EKG ---
Test Date: 2021-10-20 Test Time: 19:36:02 Finished Garment Inspector: [place] MEASUREMENT RESULTS: Intervals: Rate: 59 ME: 188 QRSD: 96 QT: 404 QTc: 399 [place]: P: 33 ME: 188 QRS: -48 T: 42 INTERPRETIVE STATEMENTS: Sinus bradycardia Left axis deviation Incomplete right bundle branch block Cannot rule out Anterior infarct, age undetermined Abnormal ECG Compared to ECG 08/19/2021 09:55:10 Myocardial infarct finding now present T-wave abnormality no longer present Electronically Signed On 10-21-21 15:06:38 CDT by Jono Moya
== END 2021-10-20 21:26 | disposition home or self-care (01) ==
LOC: ER 18:51
DX: H74.8X2 Other specified disorders of left middle ear and mastoid (principal); E87.70 Fluid overload, unspecified; I10 Essential (primary) hypertension; Z88.0 Allergy status to penicillin
CPT/HCPCS: 36415; 70450; 71045; 80048; 82947; 84484; 85025; 85610; 85730; 93005; 96374; 99284

== ENCOUNTER 2022-10-23 06:52 | Inpatient (IN) | payer OTHER, BC ==
[2022-10-23] MEDS ORDERED: CLINDAMYCIN 900MG/D5W 900 MG/50 ML IVPB IV ONE (07:33)
[2022-10-23] MEDS ORDERED: Ringers Lactate 1,000 ML IV ONE ×3 (07:33→15:29)
[2022-10-23] MEDS ORDERED: propofoL 200 MG/20 ML VIAL IV ONE (08:04)
[2022-10-23] MEDS ORDERED: FENTANYL CITR 100 MCG/2 ML ONE (08:04)
[2022-10-23] MEDS ORDERED: KETAMINE HCL IN 0.9 % NACL 50 MG/5 ML SYRINGE IV ONE (08:04)
[2022-10-23] MEDS ORDERED: LIDOCAINE 2% MPF 5 ML VIAL ONE (08:05)
[2022-10-23] MEDS ORDERED: dexAMETHasone 10 MG/ML VIAL ONE (08:05)
[2022-10-23] MEDS ORDERED: ROCURONIUM 50 MG/5 ML VIAL IV ONE ×2 (08:05)
[2022-10-23] MEDS ORDERED: ONDANSETRON 4 MG/2 ML VIAL ONE (08:05)
[2022-10-23] MEDS ORDERED: LIDOCAINE HCL/EPINEPHRINE 20 ML MDV ONE (08:07)
[2022-10-23] MEDS ORDERED: EPHEDRINE SULF 50 MG/ML VIAL ONE ×2 (08:57→13:11)
[2022-10-23] MEDS ORDERED: ATROPINE SULF 1 MG/10 ML SYR IV ONE (09:22)
[2022-10-23] MEDS ORDERED: VECURONIUM 10 MG/VIAL IV ONE (14:10)
[2022-10-23] MEDS ORDERED: propofoL 1,000 MG/100 ML VIAL IV ONE (14:57)
[2022-10-23] MEDS ORDERED: MORPHINE 2 MG/ML SYR IV PRN (15:00)
[2022-10-23] MEDS ORDERED: NA CHLORIDE 0.9% 0 ML ONE (15:28)
[2022-10-23] MEDS: MIDAZOLAM HCL 2 MG/2 ML INJ IV PRN ×2 (16:29→16:36)
[2022-10-23] MEDS ORDERED: MIDAZOLAM HCL 2 MG/2 ML INJ ONE ×2 (16:39→17:04)
[2022-10-23 17:13] LABS: Specific Gravity 1.012 (1.005-1.030); Urine Bacteria <20 /HPF (<20); Urine Bilirubin NEGATIVE (Negative); Urine Blood Negative (Negative); Urine Clarity Turbid (Clear); Urine Color Light-Yellow (Yellow); Urine Glucose TRACE (Negative); Urine Mucus Slight /HPF (None Seen); Urine Protein NEGATIVE (Negative); Urine RBC <5 /HPF (None Seen); Urine Urobilinogen Normal (Normal); Urine pH 5.5 (5.0-7.0)
--- OUTSIDE RECORDS SUMMARY | 2022-10-23 17:13 | XMS REPORT | Continuity of Care Document ---
:1940 Author Organization [facility] t Address [address] [facility] [address] [place] [address] Care Team Providers Name Role Phone Asked, No Pcp Primary Care Physician Unavailable Diane Whyte Attending Clinician Unavailable Josy Quiros Attending Clinician Unavailable Sofy Mejia Attending Clinician Unavailable KWAME KENNEDY Attending Clinician Unavailable Kwame Kennedy MD Attending Clinician Doctor Unassigned, [address] Attending Clinician Unavailable ARACELI JAMES Attending Clinician Unavailable ARACELI JAMES Attending Clinician Unavailable KWAME KENNEDY Admitting Clinician Unavailable Kwame Kennedy MD Admitting Clinician Payers Payer Name Policy Type Policy Effective Date Expiration Date Sour ce Number MEDICARE PART A [id number] 2007 \T\ B 00:00:00 BCBS TRADITIONAL [id number] 2012 00:00:00 [employer] Blue 6 [id number] 2012 [facility] 00:00:00 [facility] Problems Condition Condition Condition Status Onset Resolution Last Treating Co mments Source Name Details Category Date Date Treatment Clinician Date Essential Essential Disease Active Overview: Univers hypertensi hypertensi 04-11 Formattin ity of on on 00:00: g of this note Medical might be Branch different from the original. 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 ICD10 Diagnosis Term Consumer Marketing Analyst Utility Other Other Disease Active Univers osteoporos osteoporos 04-11 it y of is is 00:00: 00 Medical Branch [id number] Bilateral Problem Comm on hearing Spirit loss, - unspecifie [facility] hearing [facility] loss [facility] [place] Glaucoma Glaucoma Problem Commo n [facility] Seasonal Seasonal Problem Commo n allergy allergies [facility] Personal History of Problem Com mon history of breast Spirit primary cancer - malignant neoplasm [facility] breast [facility] Vitamin D Vitamin D Problem Com [facility] [id number] Elevated Problem Comm on red blood Spirit cell count - [facility] [id number] Abnormal Problem Comm on renal Spirit function - test [facility] [id number] Hearing Problem Common loss Spirit associated - with [facility] 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 [facility] [id number] Mixed Problem Common hyperlipid Spirit emia [facility] [id number] Body mass Problem Com mon index Spirit (BMI) of - 40.0-44.9 in [facility] [id number] Morbid Problem Common obesity [facility] [id number] Type 2 Problem Common diabetes Spirit mellitus - [facility] long-term current use of insulin Allergies, Adverse Reactions, Alerts Allergy Allergy Status Severity Reaction(s) Onset Inactive Treating Comm ents Source Name Type Date Date Clinician Penicill Propensi Active Swelling Univ ers ins ty to 2-21 ity of adverse 00:00: [place] reaction 00 Medical s Branch PENICILL Drug Active Rash Univers INS Class 2-21 ity of 00:00: [place] 00 Medical Branch Penicill Penicill Active Unknown Commo n in in [facility] Social History Social Habit Start Date Stop Date Quantity Comments Source History of Common Spirit - Tobacco Use [facility] Alcohol intake 2022-07-30 2022-07-30 Ex-drinker University 00:00:00 00:00:00 (finding) [facility] Tobacco use and 2022-07-11 2022-07-11 Smokeless tobacco Un iversity of exposure 00:00:00 00:00:00 non-user [facility] Sex Assigned At [birth year] Universit y of 00:00:00 00:00:00 [facility] Smoking Status Start Date Stop Date Source Tobacco smoking consumption [facility] unknown Never smoked tobacco [facility] Medications Ordered Filled Start Stop Current Ordering Indication Dosage Frequency Signature Comments Components Source Medication Medication Date Date Medication? Clinician (SIG) Name Name neomycin-po 2022- No PRN, Unive rs lymyxin-dex 07-30 Starting ity of amethasone 17:06: 17[place]11 [place] (MAXITROL[place] 00 :50 07/30/22 at Med ical 3.5 1206, Branch mg/g-10,000 Until Thu unit/g-0.1 07/30/22 at % 1211, ophthalmic Routine, ointment Intra-op sodium 2022- No PRN, Univers chloride 07-30 Starting ity of (NS) 17:04: 17:11 on Thu [place] injection 00 :50 07/30/22 at [facility] marco 1204, Branch Until Thu07/30/22 at 1211, Routine, Intra-op dexamethaso 2022- No PRN, Unive rs ne 07-30 Starting ity of (DECADRON 17:04: 17:11 on Thu [place] PHOSPHATE) 00 :50 07/30/22 at Med ical injection 1204, Branch Until Thu07/30/22 at 1211, Routine, Intra-op ceFAZolin 2022- No PRN, Univers (ANCEF) 07-30 Starting ity of injection 17:04: 17:11 on Thu [place] 00 :50 07/30/22 at Medical 1204, Branch Until Thu07/30/22 at 1211, MELISA, Intra-op carbachoL 2022- No PRN, Univers (MIOSTAT) 07-30 Starting ity o f 0.01 % 17:03: 17:11 on Thu [place] intraocular 00 :50 23 at Mo dical injection 1203, Branch Until 07/30/22 at 1211, Routine, Intra-op EPINEPHrine 2022- No PRN, Unive rs 1:1,000 (1 07-30 Starting ity of mg/mL) 16:54: 17:11 on Thu [place] (ADRENALIN) 00 :50 07/30/22 at Mo dical injection 1154, Branch Until 07/30/22 at 1211, Routine, Intra-op chondroitin 2022- No PRN, Unive rs sulf-sod 07-30 Starting ity of hyaluronate 16:54: 17:11 on Thu Ranjit as (DUOVISC 00 :50 07/30/22 at Medic al VISCO 1154, Branch ELASTIC) Until Wed intraocular 07/30/22 at injection 1211, Routine, Intra-op balanced 2022- No PRN, Univers salt irrig 07-30 Starting ity of soln comb1 16:54: 17:11 on Thu [place] (BSS PLUS) 00 :50 07/30/22 at [facility] ical ophthalmic 1154, Branch solution Until Wed 500 mL bag 07/30/22 at 1211, Routine, Intra-op water for 2022- No PRN, Univers irrigation 07-30 Starting ity of irrigation 16:46: 17:11 on Thu [place] solution 00 :50 23 at Medic al 1146, Branch Until 07/30/22 at 1211, Routine, Intra-op Hyaluronida 2022- No PRN, Unive rs se, Human 07-30 Starting ity o f Recomb. 16:43: 17:11 on Thu [place] (HYLENEX) 00 :50 07/30/22 at [facility] marco injection 1143, Branch Until 07/30/22 at 1211, Routine, Intra-op eye block 2022- No PRN, Univers syringe 11 07-30 Starting ity of mL 16:43: 17:11 on Thu [place] 00 :50 07/30/22 at Medical 1143, Branch Until Thu07/30/22 at 1211, Intra-op cyclopent 2022- No .5mL 0.5 mL, Univ ers 1%-tropic 07-30 Left Eye, ity of 1%-phenyl 15:45: 15:50 ONCE, 1 [place] 2.5%-ketor 00 :00 dose, On Medic al 0.5% Thu Branch (MYDRIATIC 07/30/22 at #5) 1045, ophthalmic Routine, solution DSU Pre-op syringe 0.5 mL lactated 2022- No 1000mL at 42 Unive rs ringers IV 07-30 mL/hr, ity of infusion 15:45: 15:52 1,000 mL, Ranjit as 1,000 mL 00 :00 IV Medical Infusion, Branch ONCE, 1 dose, On Thu07/30/22 at 1045, Routine, DSU Pre-op cyclopent 2022- No .5mL 0.5 mL, Univ ers 1%-tropic 07-30 Left Eye, ity of 1%-phenyl 15:45: 15:50 ONCE, 1 [place] 2.5%-ketor 00 :00 dose, On Medic al 0.5% Thu Branch (MYDRIATIC 07/30/22 at #5) 1045, ophthalmic Routine, solution DSU Pre-op syringe 0.5 mL lactated 2022- No 1000mL at 42 Unive rs ringers IV 07-30 mL/hr, ity of infusion 15:45: 15:52 1,000 mL, Ranjit as 1,000 mL 00 :00 IV Medical Infusion, Branch ONCE, 1 dose, On Thu07/30/22 at 1045, Routine, DSU Pre-op ASPIR-81 Yes 1 daily Univer s ORAL 07-30 ity of 13:57: [place] 47 Medical Branch metoprolol Yes 50mg Take 1 Unive rs tartrate 50 07-30 tablet by ity of mg tablet 13:57: mouth [place] 47 the Medical morning. Branch amLODIPine Yes 10mg Take 1 Unive rs 10 mg 6-21 tablet by ity of tablet 13:57: mouth in [place] 47 the Medical morning. Branch levothyroxi 2022-0 Yes 125ug Take 1 Uni vers ne 125 mcg 6-21 tablet by ity of tablet 13:57: mouth [place] 47 every Medical morning. Branch atorvastati 0 Yes 20mg Take 1 Univ ers n 20 mg 6-21 tablet by ity of tablet 13:57: mouth at [place] bedtime. Medical Branch Cholecalcif 2022-0 Yes 2000U Take 1 Uni vers soheila, 6-21 tablet by ity of Vitamin D3, 13:57: mouth in [place] 50 mcg 47 the Medical (2,000 morning. Branch unit) tablet latanoprost 0 Yes 1[drp] Place 1 U nivers 0.005 % 6-21 Drop in ity of ophthalmic 13:57: [place] eyes [place] drops 47 every Medical evening. Branch ASPIR-81 0 Yes 1 daily Univer s ORAL 6-21 ity of 13:57: [place] 47 Medical Branch metoprolol 2022-0 Yes 50mg Take 1 Unive rs tartrate 50 6-21 tablet by ity of mg tablet 13:57: mouth [place] 47 the Medical morning. Branch amLODIPine 0 Yes 10mg Take 1 Unive rs 10 mg 6-21 tablet by ity of tablet 13:57: mouth in [place] the Medical morning. Branch levothyroxi 0 Yes 125ug Take 1 Uni vers ne 125 mcg 6-21 tablet by ity of tablet 13:57: mouth [place] 47 every Medical morning. Branch atorvastati 0 Yes 20mg Take 1 Univ ers n 20 mg 6-21 tablet by ity of tablet 13:57: mouth at [place] bedtime. Medical Branch Cholecalcif 2022-0 Yes 2000U Take 1 Uni vers soheila, 6-21 tablet by ity of Vitamin D3, 13:57: mouth in [place] 50 mcg 47 the Medical (2,000 morning. Branch unit) tablet latanoprost 0 Yes 1[drp] Place 1 U nivers 0.005 % 6-21 Drop in ity of ophthalmic 13:57: [place] eyes [place] drops 47 every Medical evening. Branch ASPIR-81 2023-0 Yes 1 daily Univer s ORAL 6-21 ity of 13:57: [place] 47 Medical Branch metoprolol 0 Yes 50mg Take 1 Unive rs tartrate 50 6-21 tablet by ity of mg tablet 13:57: mouth [place] 47 the Medical morning. Branch amLODIPine 0 Yes 10mg Take 1 Unive rs 10 mg 6-21 tablet by ity of tablet 13:57: mouth in [place] 47 the Medical morning. Branch levothyroxi 0 Yes 125ug Take 1 Uni vers ne 125 mcg 6-21 tablet by ity of tablet 13:57: mouth [place] 47 every Medical morning. Branch atorvastati 0 Yes 20mg Take 1 Univ ers n 20 mg 6-21 tablet by ity of tablet 13:57: mouth at [place] [id number] bedtime. Medical Branch Cholecalcif 0 Yes 2000U Take 1 Uni vers soheila, 6-21 tablet by ity of Vitamin D3, 13:57: mouth in [place] 50 mcg 47 the Medical (2,000 morning. Branch unit) tablet latanoprost 0 Yes 1[drp] Place 1 U nivers 0.005 % 6-21 Drop in ity of ophthalmic 13:57: [place] eyes [place] drops 47 every Medical evening. Branch lactated 2022-0 Yes 1000mL at 50 Univer s ringers IV 6-07 mL/hr, ity of infusion 17:45: 1,000 mL, [place] 1,000 mL 00 IV Medical Infusion, Branch CONTINUOUS , Starting on Thu07/16/22 at 1245, Until Discontinu ed, Routine, PACU lactated 2022-0 2022- No 1000mL at 50 Unive rs ringers IV 6-07 06-07 mL/hr, ity of infusion 17:45: 19:54 1,000 mL, Ranjit as 1,000 mL 00 :37 IV Medical Infusion, Branch CONTINUOUS , Starting on Thu07/16/22 at 1245, Until Thu07/16/22 at 1454, Routine, PACU ondansetron 2022-0 Yes 4mg 4 mg, Slow Univers (ZOFRAN 6-07 IV Push, ity of (PF)) 17:31: PRN, 1 [place] injection 4 34 dose, Medical mg Starting Branch on Thu07/16/22 at 1231, Until Discontinu ed, Routine, Nausea and Vomiting (N/V), PACU ondansetron 2022- No 4mg 4 mg, Slow Univers (ZOFRAN 07-16 IV Push, ity of (PF)) 17:31: 19:54 PRN, 1 [place] injection 4 34 :37 dose, Medical mg Starting Branch on Thu07/16/22 at 1231, Until Thu07/16/22 at 1454, Routine, Nausea and Vomiting (N/V), PACU neomycin-po 2022- No PRN, Unive rs lymyxin-dex 07-16 Starting ity of amethasone 17:20: 17:24 [place] Thu [place] (MAXITROL) 00 :54 07/16/22 at [facility] 3.5 1220, Branch mg/g-10,000 Until Thu unit/g-0.1 07/16/22 at % 1224, ophthalmic Routine, ointment Intra-op dexamethaso 2022- No PRN, Unive rs ne 07-16 Starting ity of (DECADRON 17:17: 17:24 on Thu [place] PHOSPHATE) 00 :54 07/16/22 at [facility] marco injection 1217, Branch Until Thu07/16/22 at 1224, Routine, Intra-op carbachoL 2022- No PRN, Univers (MIOSTAT) 07-16 Starting ity o f 0.01 % 17:17: 17:24 on Thu [place] intraocular 00 :54 07/16/22 at Med ical injection 1217, Branch Until Thu07/16/22 at 1224, Routine, Intra-op chondroitin 2022- No PRN, Unive rs sulf-sod 07-16 Starting ity of hyaluronate 17:14: 17:24 on Thu Ranjit as (DUOVISC 00 :54 07/16/22 at Medica l VISCO 1214, Branch ELASTIC) Until Thu intraocular 07/16/22 at injection 1224, Routine, Intra-op water for 2022- No PRN, Univers irrigation 07-16 Starting ity of irrigation 17:02: 17:24 on Thu [place] solution 00 :54 07/16/22 at Medica l 1202, Branch Until Thu07/16/22 at 1224, Routine, Intra-op eye block 2022- No PRN, Univers syringe 11 07-16 Starting ity of mL 16:59: 17:24 on Thu 00 :54 723 at Medical 1159, Branch Until Thu07/16/22 at 1224, Intra-op Hyaluronida 2022- No PRN, Unive rs se, Human 07-16 Starting ity o f Recomb. 16:58: 17:24 on Thu (HYLENEX) 00 :54 07/16/22 at Medic al injection 1158, Branch Until Thu07/16/22 at 1224, Routine, Intra-op EPINEPHrine 2022- No PRN, Unive rs 1:1,000 (1 07-16 Starting ity of mg/mL) 16:57: 17:24 on Thu (ADRENALIN) 00 :54 07/16/22 at Med ical injection 1157, Branch Until Thu07/16/22 at 1224, Routine, Intra-op balanced 2022- No PRN, Univers salt irrig 07-16 Starting ity of soln comb1 16:56: 17:24 [place] Thu [place] (BSS PLUS) 00 :54 07/16/22 at [facility] ophthalmic 1156, Branch solution Until Thu 500 mL bag 07/16/22 at 1224, Routine, Intra-op cyclopent 2022- No .5mL 0.5 mL, Univ ers 1%-tropic 07-16 Right Eye, ity of 1%-phenyl 15:45: 15:50 ONCE, 1 [place] 2.5%-ketor 00 :00 dose, On Medic al 0.5% 07/16/22 Branch (MYDRIATIC at 1045, #5) Routine, ophthalmic DSU Pre-op solution syringe 0.5 mL lactated 2022- No 1000mL at 42 Unive rs ringers IV 07-1607 mL/hr, ity of infusion 15:45: 16:12 1,000 mL, Ranjit as 1,000 mL 00 :00 IV Medical Infusion, Branch ONCE, 1 dose, On Thu07/16/22 at 1045, Routine, DSU Pre-op cyclopent 2022- No .5mL 0.5 mL, Univ ers 1%-tropic 6 06-07 Right Eye, ity of 1%-phenyl 15:45: 15:50 ONCE, 1 [place] 2.5%-ketor 00 :00 dose, On Medic al 0.5% Thu07/16/22 Branch (MYDRIATIC at 1045, #5) Routine, ophthalmic DSU Pre-op solution syringe 0.5 mL lactated 2022- No 1000mL at 42 Unive rs ringers IV 07-16 06-07 mL/hr, ity of infusion 15:45: 16:12 1,000 mL, Ranjit as 1,000 mL 00 :00 IV Medical Infusion, Branch ONCE, 1 dose, On Thu07/16/22 at 1045, Routine, DSU Pre-op ASPIR-81 Yes 1 daily Univer s ORAL 6-07 ity of 12:49: [place] 35 Medical Branch metoprolol Yes 50mg Take 1 Unive rs tartrate 50 6-07 tablet by ity of mg tablet 12:49: mouth [place] 35 the Medical morning. Branch amLODIPine Yes 10mg Take 1 Unive rs 10 mg 6-07 tablet by ity of tablet 12:49: mouth in [place] 35 the Medical morning. Branch levothyroxi Yes 125ug Take 1 Uni vers ne 125 mcg 6-07 tablet by ity of tablet 12:49: mouth [place] 35 every Medical morning. Branch atorvastati Yes 20mg Take 1 Univ ers n 20 mg 6-07 tablet by ity of tablet 12:49: mouth at [place] 35 bedtime. Medical Branch Cholecalcif 0 Yes 2000U Take 1 Uni vers soheila, 6-07 tablet by ity of Vitamin D3, 12:49: mouth in [place] (VITAMIN 35 the Medical D3) 50 mcg morning. Branc h (2,000 unit) tablet latanoprost Yes 1[drp] Place 1 U nivers 0.005 % 6-07 Drop in ity of ophthalmic 12:49: both eyes [place] drops 35 every Medical evening. Branch ASPIR-81 Yes 1 daily Univer s ORAL 6-07 ity of 12:49: [place] 35 Medical Branch metoprolol Yes 50mg Take 1 Unive rs tartrate 50 6-07 tablet by ity of mg tablet 12:49: mouth [place] 35 the Medical morning. Branch amLODIPine Yes 10mg Take 1 Unive rs 10 mg 6-07 tablet by ity of tablet 12:49: mouth in [place] 35 the Medical morning. Branch levothyroxi Yes 125ug Take 1 Uni vers ne 125 mcg 6-07 tablet by ity of tablet 12:49: mouth [place] 35 every Medical morning. Branch atorvastati Yes 20mg Take 1 Univ ers n 20 mg 6-07 tablet by ity of tablet 12:49: mouth at [place] 35 bedtime. Medical Branch Cholecalcif Yes 2000U Take 1 Uni vers soheila, 6-07 tablet by ity of Vitamin D3, 12:49: mouth in [place] (VITAMIN 35 the Medical D3) 50 mcg morning. Branc h (2,000 unit) tablet latanoprost Yes 1[drp] Place 1 U nivers 0.005 % 6-07 Drop in ity of ophthalmic 12:49: [place] eyes [place] drops 35 every Medical evening. Branch FreeStyle FreeStyle Yes Sofy as Co mmon Wilfredo 14 Wilfredo 14 3-18 [place] directed Spirit Day Sensor Day Sensor 00:00: - [facility] FreeStyle FreeStyle Yes Sofy as Co mmon Wilfredo Wilfredo 3-18 [place] directed Spir it Sensor Sensor 00:00: - [facility] System System 00 [facility] MetFORMIN MetFORMIN Yes Sofy 1 tablet Common HCl ER HCl ER 3-18 [place] Spirit 00:00: - [facility] FreeStyle FreeStyle No FreeStyle Wilfredo Wilfredo 3-18 Wilfredo Sensor Sensor 00:00: Sensor System - System - 00 System - FreeStyle FreeStyle No FreeStyle Wilfredo 14 Wilfredo 14 3-18 Wilfredo 14 Day Sensor Day Sensor 00:00: Day Sensor - - 00 - FreeStyle FreeStyle 2019-0 No FreeStyle Wilfredo Wilfredo 3-18 Wilfredo Sensor Sensor 00:00: Sensor System - System - 00 System - FreeStyle FreeStyle 2019-0 No FreeStyle Wilfredo Wilfredo 3-18 Wilfredo Sensor Sensor 00:00: Sensor System - System - 00 System - FreeStyle FreeStyle 2019-0 No FreeStyle Wilfredo 14 Wilfredo 14 3-18 Wilfredo 14 Day Sensor Day Sensor 00:00: Day Sensor - - 00 - FreeStyle FreeStyle 2019-0 No FreeStyle Wilfredo Wilfredo 3-18 Wilfredo Sensor Sensor 00:00: Sensor System - System - 00 System - FreeStyle FreeStyle 2019-0 No FreeStyle Wilfredo 14 Wilfredo 14 3-18 Wilfredo 14 Day Sensor Day Sensor 00:00: Day Sensor - - 00 - FreeStyle FreeStyle 2019-0 No FreeStyle Wilfredo Wilfredo 3-18 Wilfredo Sensor Sensor 00:00: Sensor System - System - 00 System - FreeStyle FreeStyle 2019-0 No FreeStyle Wilfredo 14 Wilfredo 14 3-18 Wilfredo 14 Day Sensor Day Sensor 00:00: Day Sensor - - 00 - FreeStyle FreeStyle 2019-0 No FreeStyle Wilfredo Wilfredo 3-18 Wilfredo Sensor Sensor 00:00: Sensor System - System - 00 System - FreeStyle FreeStyle 2019-0 No FreeStyle Wilfredo 14 Wilfredo 14 3-18 Wilfredo 14 Day Sensor Day Sensor 00:00: Day Sensor - - 00 - FreeStyle FreeStyle 2019-0 No FreeStyle Wilfredo Wilfredo 3-18 Wilfredo Sensor Sensor 00:00: Sensor System - System - 00 System - FreeStyle FreeStyle 2019-0 No FreeStyle Wilfredo 14 Wilfredo 14 3-18 Wilfredo 14 Day Sensor Day Sensor 00:00: Day Sensor - - 00 - FreeStyle FreeStyle 2019-0 No FreeStyle Wilfredo 14 Wilfredo 14 3-18 Wilfredo 14 Day Sensor Day Sensor 00:00: Day Sensor - - 00 - FreeStyle FreeStyle 2019-0 No FreeStyle Wilfredo Wilfredo 3-18 Wilfredo Sensor Sensor 00:00: Sensor System - System - 00 System - FreeStyle FreeStyle 2019-0 No FreeStyle Wilfredo 14 Wilfredo 14 3-18 Wilfredo 14 Day Sensor Day Sensor 00:00: Day Sensor - - 00 - FreeStyle FreeStyle 2018- No FreeStyle Wilfredo Wilfredo 3-18 Wilfredo Sensor Sensor 00:00: Sensor System - System - 00 System - FreeStyle FreeStyle 20190 No FreeStyle Wilfredo 14 Wilfredo 14 3-18 Wilfredo 14 Day Sensor Day Sensor 00:00: Day Sensor - - 00 - FreeStyle FreeStyle No FreeStyle Wilfredo Wilfredo 3-18 Wilfredo Sensor Sensor 00:00: Sensor System - System - 00 System - FreeStyle FreeStyle No FreeStyle Wilfredo 14 Wilfredo 14 3-18 Wilfredo 14 Day Sensor Day Sensor 00:00: Day Sensor - - 00 - Vitamin D Vitamin D Yes Sofy 1 tablet Common [facility] Multivitami Multivitami Yes Sofy not Common n n [facility] defined [facility] Lipitor Lipitor Yes Sofy 1 tablet Comm on Millender in evening Spir it - [facility] Aspir-Low Aspir-Low Yes Sofy 1 tablet Common [facility] Hydrochloro Hydrochloro Yes Sofy 1 tablet Common thiazide thiazide [place] in the Spirit morning [facility] Flonase Flonase Yes Sofy 2 sprays Comm on Millender in each Spirit nostril [facility] Remeven Remeven Yes Sofy 1 Common [place] applicatio Spir it n to - CHI affected [facility] Synthroid Synthroid Yes Sofy 1 tablet Common [place] on an Spirit empty - CHI stomach in [facility] Triamcinolo Triamcinolo Yes Sofy 1 Common ne ne [place]ender applicatio Spir it Acetonide Acetonide n to - [facility] affected [facility] Amlodipine Amlodipine Yes Sofy 1 tablet Common Besylate Besylate Millender Sp greg [facility] Loratadine Loratadine Yes Sofy 1 tablet Common [facility] Neomycin-Po Neomycin-Po Yes Sofy 1 drop Common lymyxin-Dex lymyxin-Dex [place] into Spirit ameth ameth affected - [facility] eye [facility] Metoprolol Metoprolol Yes Sofy 1 tablet Common Tartrate Tartrate [place] with food Spirit - [facility] Atorvastati Atorvastati Yes Sofy TAKE 1 Common n Calcium n Calcium [place] TABLET BY Spirit MOUTH ONCE - [facility]I DAILY IN [facility] Levothyroxi Levothyroxi Yes Sofy TAKE 1 Common ne Sodium ne Sodium [place] TABLET BY Spirit MOUTH ONCE - [facility] DAILY ON St AN EMPTY [facility] STOMACH IN Medical THE [place] MORNING amLODIPine amLODIPine No 1{table QD amLODIPine Besylate 10 Besylate 10 t} Besylate MG MG 10 MG Aspir-Low Aspir-Low No 1{table QD Aspir-Low 81 MG 81 MG t} 81 MG Multivitami Multivitami No Multivitam n - n - in - hydroCHLORO hydroCHLORO No 1{table QD hydroCHLOR thiazide 25 thiazide 25 t_in_th Othiazide MG MG e_morni 25 MG ng} Aspir-Low Aspir-Low No 1{table QD Aspir-Low 81 MG 81 MG t} 81 MG Loratadine Loratadine No 1{table QD Loratadine 10 MG 10 MG t} 10 MG Vitamin D Vitamin D No 1{table QD Vitamin D 50 MCG 50 MCG t} 50 MCG (1999) (1999) (1999) Flonase 50 Flonase 50 No 2{spray QD Flonase 50 MCG/ACT MCG/ACT s_in_ea MCG/ACT ch_nost ril} amLODIPine amLODIPine No 1{table QD amLODIPine Besylate 10 Besylate 10 t} Besylate MG MG 10 MG Multivitami Multivitami No Multivitam n - n - in - Atorvastati Atorvastati No Atorvastat n Calcium n Calcium in Calcium 20 MG 20 MG 20 MG Metoprolol Metoprolol No 1{table BID Metoprolol Tartrate 50 Tartrate 50 t_with_ Tartrate MG MG food} 50 MG Atorvastati Atorvastati No 1{table QD Atorvastat n Calcium n Calcium t} in Calcium 20 MG 20 MG 20 MG Levothyroxi Levothyroxi No QD Levothyrox ne Sodium ne Sodium ine Sodium 125 MCG 125 MCG 125 MCG Flonase 50 Flonase 50 No 2{spray QD Flonase 50 MCG/ACT MCG/ACT s_in_ea MCG/ACT ch_nost ril} amLODIPine amLODIPine No 1{table QD amLODIPine Besylate 10 Besylate 10 t} Besylate MG MG 10 MG hydroCHLORO hydroCHLORO No 1{table QD hydroCHLOR thiazide 25 thiazide 25 t_in_th Othiazide MG MG e_morni 25 MG ng} Multivitami Multivitami No Multivitam n - n - in - Aspir-Low Aspir-Low No 1{table QD Aspir-Low 81 MG 81 MG t} 81 MG Metoprolol Metoprolol No 1{table BID Metoprolol Tartrate 50 Tartrate 50 t_with_ Tartrate MG MG food} 50 MG Loratadine Loratadine No 1{table QD Loratadine 10 MG 10 MG t} 10 MG Atorvastati Atorvastati No Atorvastat n Calcium n Calcium in Calcium 20 MG 20 MG 20 MG Atorvastati Atorvastati No 1{table QD Atorvastat n Calcium n Calcium t} in Calcium 20 MG 20 MG 20 MG Vitamin D Vitamin D No 1{table QD Vitamin D 50 MCG 50 MCG t} 50 MCG (1999) (1999) (1999) Flonase 50 Flonase 50 No 2{spray QD Flonase 50 MCG/ACT MCG/ACT s_in_ea MCG/ACT ch_nost ril} amLODIPine amLODIPine No 1{table QD amLODIPine Besylate 10 Besylate 10 t} Besylate MG MG 10 MG hydroCHLORO hydroCHLORO No 1{table QD hydroCHLOR thiazide 25 thiazide 25 t_in_th Othiazide MG MG e_morni 25 MG ng} Multivitami Multivitami No Multivitam n - n - in - Aspir-Low Aspir-Low No 1{table QD Aspir-Low 81 MG 81 MG t} 81 MG Metoprolol Metoprolol No 1{table BID Metoprolol Tartrate 50 Tartrate 50 t_with_ Tartrate MG MG food} 50 MG Loratadine Loratadine No 1{table QD Loratadine 10 MG 10 MG t} 10 MG Atorvastati Atorvastati No Atorvastat n Calcium n Calcium in Calcium 20 MG 20 MG 20 MG Atorvastati Atorvastati No 1{table QD Atorvastat n Calcium n Calcium t} in Calcium 20 MG 20 MG 20 MG Vitamin D Vitamin D No 1{table QD Vitamin D 50 MCG 50 MCG t} 50 MCG (1999) (1999) (1999) amLODIPine amLODIPine No 1{table QD amLODIPine Besylate 10 Besylate 10 t} Besylate MG MG 10 MG Loratadine Loratadine No 1{table QD Loratadine 10 MG 10 MG t} 10 MG Flonase 50 Flonase 50 No 2{spray QD Flonase 50 MCG/ACT MCG/ACT s_in_ea MCG/ACT ch_nost ril} Metoprolol Metoprolol No 1{table BID Metoprolol Tartrate 50 Tartrate 50 t_with_ Tartrate MG MG food} 50 MG Vitamin D Vitamin D No 1{table QD Vitamin D 50 MCG 50 MCG t} 50 MCG (1999) (1999) (1999) hydroCHLORO hydroCHLORO No 1{table QD hydroCHLOR thiazide 25 thiazide 25 t_in Othiazide MG MG e_morni 25 MG ng} Atorvastati Atorvastati No Atorvastat n Calcium n Calcium in Calcium 20 MG 20 MG 20 MG Multivitami Multivitami No Multivitam n - n - in - Aspir-Low Aspir-Low No 1{table QD Aspir-Low 81 MG 81 MG t} 81 MG Levothyroxi Levothyroxi No QD Levothyrox ne Sodium ne Sodium ine Sodium 125 MCG 125 MCG 125 MCG Atorvastati Atorvastati No 1{table QD Atorvastat n Calcium n Calcium t} in Calcium 20 MG 20 MG 20 MG Flonase 50 Flonase 50 No 2{spray QD Flonase 50 MCG/ACT MCG/ACT s_in_ea MCG/ACT ch_nost ril} Metoprolol Metoprolol No 1{table BID Metoprolol Tartrate 50 Tartrate 50 t_with_ Tartrate MG MG food} 50 MG Aspir-Low Aspir-Low No 1{table QD Aspir-Low 81 MG 81 MG t} 81 MG Vitamin D Vitamin D No 1{table QD Vitamin D 50 MCG 50 MCG t} 50 MCG (1999) (1999) (1999) amLODIPine amLODIPine No 1{table QD amLODIPine Besylate 10 Besylate 10 t} Besylate MG MG 10 MG Atorvastati Atorvastati No Atorvastat n Calcium n Calcium in Calcium 20 MG 20 MG 20 MG Atorvastati Atorvastati No 1{table QD Atorvastat n Calcium n Calcium t} in Calcium 20 MG 20 MG 20 MG Levothyroxi Levothyroxi No QD Levothyrox ne Sodium ne Sodium ine Sodium 125 MCG 125 MCG 125 MCG hydroCHLORO hydroCHLORO No 1{table QD hydroCHLOR thiazide 25 thiazide 25 t_in_th Othiazide MG MG e_morni 25 MG ng} Multivitami Multivitami No Multivitam n - n - in - Loratadine Loratadine No 1{table QD Loratadine 10 MG 10 MG t} 10 MG Flonase 50 Flonase 50 No 2{spray QD Flonase 50 MCG/ACT MCG/ACT s_in_ea MCG/ACT ch_nost ril} Metoprolol Metoprolol No 1{table BID Metoprolol Tartrate 50 Tartrate 50 t_with_ Tartrate MG MG food} 50 MG Aspir-Low Aspir-Low No 1{table QD Aspir-Low 81 MG 81 MG t} 81 MG Vitamin D Vitamin D No 1{table QD Vitamin D 50 MCG 50 MCG t} 50 MCG (1999) (1999) (1999) amLODIPine amLODIPine No 1{table QD amLODIPine Besylate 10 Besylate 10 t} Besylate MG MG 10 MG Atorvastati Atorvastati No Atorvastat n Calcium n Calcium in Calcium 20 MG 20 MG 20 MG Atorvastati Atorvastati No 1{table QD Atorvastat n Calcium n Calcium t} in Calcium 20 MG 20 MG 20 MG Levothyroxi Levothyroxi No QD Levothyrox ne Sodium ne Sodium ine Sodium 125 MCG 125 MCG 125 MCG hydroCHLORO hydroCHLORO No 1{table QD hydroCHLOR thiazide 25 thiazide 25 t_in_th Othiazide MG MG e_morni 25 MG ng} Multivitami Multivitami No Multivitam n - n - in - Loratadine Loratadine No 1{table QD Loratadine 10 MG 10 MG t} 10 MG Flonase 50 Flonase 50 No 2{spray QD Flonase 50 MCG/ACT MCG/ACT s_in_ea MCG/ACT ch_nost ril} Levothyroxi Levothyroxi No QD Levothyrox ne Sodium ne Sodium ine Sodium 125 MCG 125 MCG 125 MCG Latanoprost Latanoprost No 1{drop_ QD Latanopros 0.005 % 0.005 % into_af t 0.005 % fected_ eye_in_ the_eve [place]} Atorvastati Atorvastati No 1{table QD Atorvastat n Calcium n Calcium t} in Calcium 20 MG 20 MG 20 MG Loratadine Loratadine No 1{table QD Loratadine 10 MG 10 MG t} 10 MG Atorvastati Atorvastati No Atorvastat n Calcium n Calcium in Calcium 20 MG 20 MG 20 MG Vitamin D Vitamin D No 1{table QD Vitamin D 50 MCG 50 MCG t} 50 MCG (1999) (1999) (1999) hydroCHLORO hydroCHLORO No 1{table QD hydroCHLOR thiazide 25 thiazide 25 t_in_th Othiazide MG MG e_morni 25 MG ng} Metoprolol Metoprolol No 1{table BID Metoprolol Tartrate 50 Tartrate 50 t_with_ Tartrate MG MG food} 50 MG amLODIPine amLODIPine No 1{table QD amLODIPine Besylate 10 Besylate 10 t} Besylate MG MG 10 MG Aspir-Low Aspir-Low No 1{table QD Aspir-Low 81 MG 81 MG t} 81 MG Multivitami Multivitami No Multivitam n - n - in - Flonase 50 Flonase 50 No 2{spray QD Flonase 50 MCG/ACT MCG/ACT s_in_ea MCG/ACT ch_nost ril} Levothyroxi Levothyroxi No QD Levothyrox ne Sodium ne Sodium ine Sodium 125 MCG 125 MCG 125 MCG Latanoprost Latanoprost No 1{drop_ QD Latanopros 0.005 % 0.005 % into_af t 0.005 % fected_ eye_in_ the_eve [place]} Atorvastati Atorvastati No 1{table QD Atorvastat n Calcium n Calcium t} in Calcium 20 MG 20 MG 20 MG Loratadine Loratadine No 1{table QD Loratadine 10 MG 10 MG t} 10 MG Atorvastati Atorvastati No Atorvastat n Calcium n Calcium in Calcium 20 MG 20 MG 20 MG Vitamin D Vitamin D No 1{table QD Vitamin D 50 MCG 50 MCG t} 50 MCG (1999) (1999) (1999) hydroCHLORO hydroCHLORO No 1{table QD hydroCHLOR thiazide 25 thiazide 25 t_in_th Othiazide MG MG e_morni 25 MG ng} Metoprolol Metoprolol No 1{table BID Metoprolol Tartrate 50 Tartrate 50 t_with_ Tartrate MG MG food} 50 MG amLODIPine amLODIPine No 1{table QD amLODIPine Besylate 10 Besylate 10 t} Besylate MG MG 10 MG Aspir-Low Aspir-Low No 1{table QD Aspir-Low 81 MG 81 MG t} 81 MG Multivitami Multivitami No Multivitam n - n - in - Flonase 50 Flonase 50 No 2{spray QD Flonase 50 MCG/ACT MCG/ACT s_in_ea MCG/ACT ch_nost ril} Levothyroxi Levothyroxi No QD Levothyrox ne Sodium ne Sodium ine Sodium 125 MCG 125 MCG 125 MCG Latanoprost Latanoprost No 1{drop_ QD Latanopros 0.005 % 0.005 % into_af t 0.005 % fected_ eye_in_ the_eve [place]} Atorvastati Atorvastati No 1{table QD Atorvastat n Calcium n Calcium t} in Calcium 20 MG 20 MG 20 MG Loratadine Loratadine No 1{table QD Loratadine 10 MG 10 MG t} 10 MG Atorvastati Atorvastati No Atorvastat n Calcium n Calcium in Calcium 20 MG 20 MG 20 MG Vitamin D Vitamin D No 1{table QD Vitamin D 50 MCG 50 MCG t} 50 MCG (1999) (1999) (1999) hydroCHLORO hydroCHLORO No 1{table QD hydroCHLOR thiazide 25 thiazide 25 t_in_th Othiazide MG MG e_morni 25 MG ng} Metoprolol Metoprolol No 1{table BID Metoprolol Tartrate 50 Tartrate 50 t_with_ Tartrate MG MG food} 50 MG amLODIPine amLODIPine No 1{table QD amLODIPine Besylate 10 Besylate 10 t} Besylate MG MG 10 MG Aspir-Low Aspir-Low No 1{table QD Aspir-Low 81 MG 81 MG t} 81 MG Multivitami Multivitami No Multivitam n - n - in - Flonase 50 Flonase 50 No 2{spray QD Flonase 50 MCG/ACT MCG/ACT s_in_ea MCG/ACT ch_nost ril} Levothyroxi Levothyroxi No QD Levothyrox ne Sodium ne Sodium ine Sodium 125 MCG 125 MCG 125 MCG Latanoprost Latanoprost No 1{drop_ QD Latanopros 0.005 % 0.005 % into_af t 0.005 % fected_ eye_in_ the_eve [place]} Atorvastati Atorvastati No 1{table QD Atorvastat n Calcium n Calcium t} in Calcium 20 MG 20 MG 20 MG Loratadine Loratadine No 1{table QD Loratadine 10 MG 10 MG t} 10 MG Atorvastati Atorvastati No Atorvastat n Calcium n Calcium in Calcium 20 MG 20 MG 20 MG Vitamin D Vitamin D No 1{table QD Vitamin D 50 MCG 50 MCG t} 50 MCG (1999) (1999) (1999) hydroCHLORO hydroCHLORO No 1{table QD hydroCHLOR thiazide 25 thiazide 25 t_in_th Othiazide MG MG e_morni 25 MG ng} Metoprolol Metoprolol No 1{table BID Metoprolol Tartrate 50 Tartrate 50 t_with_ Tartrate MG MG food} 50 MG Vital Signs Vital Name Observation Time Observation Value Comments Source Systolic blood 2022-07-30 17:30:00 166 [facility]Hg[facility] 2022-07-30 17:30:00 92 mm[Hg] Unive [facility] Respiratory rate 2022-07-30 17:30:00 15 /min [facility] Oxygen saturation in 2022-07-30 17:30:00 95 /min [facility] Arterial blood by [facility] Pulse oximetry Branch Heart rate 2022-07-30 17:20:00 50 /min [facility] Body temperature 2022-07-30 17:09:00 36.56 Mariella [facility] Body height 2022-07-30 16:14:00 152.4 cm [facility] Body weight 2022-07-30 16:14:00 90.719 kg [facility] BMI 2022-07-30 16:14:00 39.06 kg/m2 [facility] Body height 2022-07-30 16:14:00 152.4 cm [facility] Body weight 2022-07-30 16:14:00 90.719 kg [facility] BMI 2022-07-30 16:14:00 39.06 kg/m2 [facility] Systolic blood 2022-07-30 15:45:00 184 mm[Hg] [facility]iver [facility] Diastolic blood 2022-07-30 15:45:00 87 mm[Hg] [facility]ive [facility] Heart rate 2022-07-30 15:36:00 60 /min [facility] Body temperature 2022-07-30 15:36:00 36.83 Mariella [facility] Respiratory rate 2022-07-30 15:36:00 16 /min [facility] Oxygen saturation in 2022-07-30 15:36:00 96 /min [facility] Arterial blood by [facility] Pulse oximetry Branch Systolic blood 2022-07-16 17:30:00 142 mm[Hg] [facility]iver [facility] Diastolic blood 2022-07-16 17:30:00 62 mm[Hg] [facility]ive [facility] Respiratory rate 2022-07-16 17:30:00 15 /min [facility] Oxygen saturation in 2022-07-16 17:30:00 96 /min [facility] Arterial blood by [facility] Pulse oximetry Branch Heart rate 2022-07-16 17:26:00 60 /min [facility] Body temperature 2022-07-16 16:01:00 36.94 Mariella [facility] Body height 2022-07-11 18:00:00 152.4 cm [facility] Body weight 2022-07-11 18:00:00 90.719 kg [facility] BMI 2022-07-11 18:00:00 39.06 kg/m2 [facility] Systolic blood 2022-07-16 16:01:00 168 mm[Hg] [facility] Diastolic blood 2022-07-16 16:01:00 74 mm[Hg] [facility]ive [facility] Heart rate 2022-07-16 16:01:00 56 /min [facility] Body temperature 2022-07-16 16:01:00 36.94 Mariella [facility] Res[facility] rate 2022-07-16 16:01:00 19 /min [facility] Oxygen saturation in 2022-07-16 16:01:00 96 /min [facility] blood by [facility] Pulse oximetry Branch Body height 2022-07-11 18:00:00 152.4 cm [facility] Body weight 2022-07-11 18:00:00 90.719 kg [facility] BMI 2022-07-11 18:00:00 39.06 kg/m2 [facility] height 2021-11-04 09:40:00 60.25 [in_i] [facility] weight 2021-11-04 09:40:00 215 [lb_av] [facility] temperature 2021-11-04 09:40:00 97.2 [degF] [facility] bmi 2021-11-04 09:40:00 41.64 kg/m2 [facility] oximetry 2021-11-04 09:40:00 96 % [facility] respiratory rate 2021-11-04 09:40:00 17 /min [facility] blood pressure 2021-11-04 09:40:00 126 mm[Hg] Common [facility] - systolic [facility] blood pressure 2021-11-04 09:40:00 68 mm[Hg] [facility] - diastolic [facility] height 2021-11-04 10:00:00 60.25 [in_i] [facility] weight 2021-11-04 10:00:00 215 [lb_av] [facility] temperature 2021-11-04 10:00:00 97.2 [degF] [facility] bmi 2021-11-04 10:00:00 41.64 kg/m2 [facility] oximetry 2021-11-04 10:00:00 96 % Common [facility] respiratory rate 2021-11-04 10:00:00 17 /min Comm on [facility] blood pressure 2021-11-04 10:00:00 126 mm[Hg] Common [facility] - systolic [facility] blood pressure 2021-11-04 10:00:00 68 mm[Hg] Common [facility] - diastolic [facility] height 2021-08-05 10:00:00 60.25 [in_i] Common [facility] weight 2021-08-05 10:00:00 220 [lb_av] [facility] temperature 2021-08-05 10:00:00 97.6 [degF] [facility] bmi 2021-08-05 10:00:00 42.61 kg/m2 [facility] oximetry 2021-08-05 10:00:00 96 % [facility] respiratory rate 2021-08-05 10:00:00 17 /min [facility] blood pressure 2021-08-05 10:00:00 134 mm[Hg] [facility] systolic [facility] blood pressure 2021-08-05 10:00:00 78 mm[Hg] Common [facility] diastolic [facility] height 2021-04-12 08:20:00 60.25 [in_i] Common [facility] weight 2021-04-12 08:20:00 221.6 [lb_av] Common [facility] temperature 2021-04-12 08:20:00 97.1 [degF] Common [facility] bmi 2021-04-12 08:20:00 42.92 kg/m2 [facility] oximetry 2021-04-12 08:20:00 95 % Common [facility] respiratory rate 2021-04-12 08:20:00 16 /min Comm on [facility] blood pressure 2021-04-12 08:20:00 138 mm[Hg] Common [facility] - systolic [facility] blood pressure 2021-04-12 08:20:00 82 mm[Hg] [facility] diastolic [facility] height 2021-01-17 09:40:00 60.25 [in_i] [facility] weight 2021-01-17 09:40:00 222 [lb_av] [facility] temperature 2021-01-17 09:40:00 98.1 [degF] [facility] bmi 2021-01-17 09:40:00 42.99 kg/m2 [facility] oximetry 2021-01-17 09:40:00 98 % [facility] respiratory rate 2021-01-17 09:40:00 16 /min [facility] blood pressure 2021-01-17 09:40:00 148 mm[Hg] Common [facility] - systolic [facility] blood pressure 2021-01-17 09:40:00 78 mm[Hg] Common [facility] diastolic [facility] Procedures Procedure Date / Time Performing Source Performed Clinician PHACOEMULSIFICATION OF 2022-07-30 Kwame Kennedy [facility] CATARACT WITH INTRAOCULAR 16:32:00 Medica l Branch LENS IMPLANT PATIENT QUESTIONNAIRE 2022-07-30 Doctor Unassigned, [facility] 05:01:[address] Medical Branch PHACOEMULSIFICATION OF 2022-07-16 Kwame Kennedy [facility] CATARACT WITH INTRAOCULAR 16:49:00 Medica l Branch LENS IMPLANT CT ORBITS WO CONTRAST 2021-08-14 [facility] CT TEMPORAL BONE WO CONTRAST 2021-08-14 Araceli James [facility] 15:36:51 Plan of Care Planned Activity Planned Date Details Comments Source Future Scheduled 2021-10-18 Hepatitis C screening [facility] Test 14:47:23 (procedure) [code = 835302467] Future Scheduled 2021-10-18 SHINGLES VACCINES (1 Met [facility] Test 14:47:23 of 2) [code = SHINGLES VACCINES (1 of 2)] Future Scheduled 2021-10-18 65+ PNEUMOCOCCAL Methodi [facility] Test 14:47:23 VACCINE (1 - PCV) [code = 65+ PNEUMOCOCCAL VACCINE (1 - PCV)] Future Scheduled 2021-10-18 INFLUENZA VACCINE Method [facility] Test 14:47:23 [code = INFLUENZA VACCINE] Future Scheduled 2021-10-18 HEPATITIS B VACCINES Met [facility] Test 14:47:23 (1 of 3 - 3-dose series) [code = HEPATITIS B VACCINES (1 of 3 - 3-dose series)] Future Scheduled 2021-10-18 COVID-19 VACCINE (#1) [facility] Test 14:47:23 [code = COVID-19 VACCINE (#1)] Encounters Start End Encounter Admission Attending Care Care Encounter Source Date/Time Date/Time Type Type Clinicians Facility Department ID 2022-08-07 Outpatient Whyte, STLMLC STLC [id number] Common 16:19:00 Diane 11540 [facility] 2022-05-01 Outpatient Whyte, STLMLC STLC [id number] Common 09:33:00 Diane [id number] [facility] 2021-04-15 Outpatient Whyte, STLMLC STLC [id number] Common 10:45:01 Diane [facility] 2021-04-12 Outpatient Whyte, STLMLC STLC [id number] Common 08:05:00 Diane 18963 [facility] 2021-04-10 Outpatient Worth, STLMLC STLMLC [id number] Common 08:12:01 Josy [facility] 2021-03-06 Outpatient Worth, STLMLC STLC [id number] Common 14:23:24 Josy 02618 [facility] 2021-03-06 Outpatient Worth, STLMLC STLC [id number] Common 13:31:47 Josy 81336 [facility] 2021-03-06 Outpatient Worth, STLMLC STLMLC [id number] Common 12:25:48 Josy 43586 [facility] 2021-03-06 Outpatient STLMLC STLMLC [id number] Common 12:16:10 47460 [facility] 2021-03-06 Outpatient STLMLC STLMLC [id number] Common 12:11:31 74857 [facility] 2021-03-06 Outpatient Millender, STLMLC STLMLC [id number] Common 11:33:13 Sofy 07480 [facility] 2021-03-06 Outpatient Millender, STLMLC STLMLC [id number] Common 11:33:03 Sofy 95741 [facility] 2021-03-06 Outpatient Millender, STLMLC STLMLC [id number] Common 11:32:45 Sofy 39395 [facility] 2021-03-06 Outpatient Millender, STLMLC STLMLC [id number] Common 11:07:36 Sofy 49055 [facility] 2021-03-06 Outpatient Millender, STLMLC STLMLC [id number] Common 11:07:21 Sofy 16950 [facility] 2021-03-06 Outpatient Millender, STLMLC STLMLC [id number] Common 11:07:08 Sofy 21484 [facility] 2021-03-06 Outpatient Millender, STLMLC STLMLC [id number] Common 11:06:34 Sofy 16618 [facility] 2022-07-30 2022-07-30 [facility] [id number] Univers 10:32:00 12:52:00 KWAME khan [facility] 2022-07-30 2022-07-30 [facility] [id number] Univers 10:32:00 12:52:00 Encounter Kwame AN[id number] [facility] [id number] Geraldine thompson SURGICAL [id number] [place] [address] Branch 2022-07-30 2022-07-30 Surgery [facility] [id number] Univers 11:27:00 12:01:00 Kwame ANNA [id number] [id number] [id number] [facility] 020 Branch 2022-07-30 2022-07-30 Orders Doctor KAILA [id number] Univers 00:00:00 00:00:00 Only Unassigned, JASSI [id number] [facility] [id number] Ranjit as [id number] [place] [address] Branch 2022-07-16 2022-07-16 Hospital [facility] [id number] Univers 10:35:00 12:46:00 Encounter Kwame ANNA [id number] [id number] [id number] [place] [id number] [place] 2022-07-16 2022-07-16 Outpatient R [facility] OPH [id number] Univers 10:35:00 12:46:00 KWAME khan [facility] 2022-07-16 2022-07-16 Surgery [facility] [id number] Univers 11:19:00 11:53:00 Kwame ANNA [id number] [id number] [id number] [facility] 020 Branch 2021-11-04 2021-11-04 [id number]:00 00:00:00 VISIT [facility] ESTAB PT - [facility] L[facility]EL [facility] 2021-11-04 2021-11-04 [facility] [id number] Common 00:00:00 00:00:00 Medicare [facility] - [facility] 2021-10-03 2021-10-03 Outpatient TATI JAMES [address] 08:21:00 15:15:00 ARACELI 2021-08-21 2021-08-21 (TEL) STLMLC STLMLC [id number] Co mmon 00:00:00 00:00:00 [facility] 2021-08-14 2021-08-14 Outpatient ERIKA, [facility] [id number] [place] 00:00:00 00:00:00 ARACELI [address] 2021-08-14 2021-08-14 Outpatient ERIKA [facility] [id number] [place] 00:00:00 00:00:00 ARACELI [address] 2021-08-05 2021-08-05 OFFICE STLMLC STLMLC [id number] Co mmon 00:00:00 00:00:00 VISIT [facility] PT - [facility] LEVEL 4 [facility] 2021-08-05 2021-08-05 Transcribe Erika, [id number] Methodi 00:00:00 00:00:00 Orders Araceli L. [id number] [id number] Hospit a .[id number] l .8 2021-04-12 2021-04-12 OFFICE STLMLC STLMLC [id number] Co mmon 00:00:00 00:00:00 VISIT [facility] PT - [facility]I LEVEL 4 [facility] 2021-01-24 2021-01-24 (TEL) STLMLC STLMLC [id number] Co mmon 00:00:00 00:00:00 [facility] 2021-01-24 2021-01-24 (TEL) STLMLC STLMLC [id number] Co mmon 00:00:00 00:00:00 [facility] 2021-01-17 2021-01-17 OFFICE STLMLC STLMLC [id number] Co mmon 00:00:00 00:00:00 VISIT [facility] PT - [facility] LEVEL 4 [facility] 2020-10-29 2020-10-29 Outpatient STLMLC STLMLC [id number] Common 00:00:00 00:00:00 [facility] 2020-10-26 2020-10-26 Outpatient STLMLC STLMLC [id number] Common 00:00:00 00:00:00 [facility] 2020-10-18 2020-10-18 Outpatient STLMLC STLMLC [id number] Common 00:00:00 00:00:00 [facility] 2020-09-05 2020-09-05 Outpatient STLMLC STLMLC [id number] Common 00:00:00 00:00:00 [facility] 2020-05-22 2020-05-22 Outpatient STLMLC STLMLC [id number] Common 00:00:00 00:00:00 [facility] 2020-03-07 2020-03-07 Outpatient STLMLC STLMLC [id number] Common 00:00:00 00:00:00 [facility] 2019-09-05 2019-09-05 [facility] [id number] Common 11:00:00 11:00:00 [facility] it [facility] 2019-05-12 2019-05-12 [facility] [id number] Common 13:01:00 13:01:00 [facility] 2019-04-28 2019-04-28 [facility] [id number] Common 16:32:00 16:32:00 t [facility] Sp[facility] and Joint [facility] - [facility] 2019-04-20 2019-04-20 [facility] [id number] Common 09:00:00 09:00:00 t [facility] Sp[facility] and Joint [facility] - [facility] 2019-04-11 2019-04-11 Out[facility] [id number] Common 15:30:00 15:30:00 t [facility] Sp[facility] and Joint [facility] - [facility] 2019-03-24 2019-03-24 Out[facility] [id number] Common 09:45:00 09:45:00 t [facility] it [facility] 2019-03-21 2019-03-21 Out[facility] [id number] Common 08:00:00 08:00:00 t [facility] Sp[facility] and Joint [facility] - [facility] 2018-10-14 2018-10-14 Out[facility] [id number] Common 08:40:00 08:40:[address] [facility] 2018-08-03 2018-08-03 Out[facility] [id number] Common 08:45:00 08:45:[address] [facility] 2018-07-27 2018-07-27 Outpatient [facility] [id number] Common 09:40:00 09:40:[address] [facility] 2018-04-26 2018-04-26 Outpatient [facility] [id number] Common 13:47:00 13:47:[address] [facility] 2018-04-26 2018-04-26 Out[facility] [id number] Common 08:30:00 08:30:[address] [facility] 2017-11-16 2017-11-16 Out[facility] [id number] Common 09:15:00 09:15:[address] [facility] 2017-06-02 2017-06-02 Out[facility] [id number] Common 15:00:00 15:00:[address] [facility] Results Test Description Test Time Test Comments Results Result Comments Source HEMOGLOBIN A1C 2021-01-17 00:00:00 Test Item Value Reference Range Interpretation Comme nts A1C (test code = 4548-4) 6.1
[2022-10-23] MEDS: propofoL 1,000 MG/100 ML VIAL IV SCH ×2 (18:05→20:13)
[2022-10-23] MEDS ORDERED: LORazepam 2 MG/ML VIAL IV PRN (18:41)
[2022-10-23] MEDS: NA CHLORIDE 0.9% 1,000 ML IV SCH (18:59)
[2022-10-23] MEDS: ALBUTEROL 2.5 MG/3 ML NEB SOL NEB SCH (20:05)
[2022-10-23] MEDS: LORazepam 2 MG/ML VIAL IV PRN (20:13)
[2022-10-23] MEDS: CLINDAMYCIN 600MG/D5W 50 ML IV SCH (20:14)
--- NOTE | 2022-10-23 21:11 | RAD REPORT ---
EXAM DESCRIPTION: RAD - Chest Single View - 10/23/2022 3:56 pm CLINICAL HISTORY: ET TUBE PLACEMENT Chest pain. COMPARISON: Chest Single View dated 10/20/2021 FINDINGS: Portable technique limits examination quality. Tip of the endotracheal tube is at the level of the superior aortic arch. The lungs are grossly clear . The heart is mildly enlarged in size.
[2022-10-23 21:58] LABS: Hematocrit 41.4 % (36.0-45.0)
[2022-10-23] MEDS: FENTANYL CITR 100 MCG/2 ML IV PRN (22:13)
[2022-10-24] MEDS: MIDAZOLAM HCL 2 MG/2 ML INJ IV PRN ×4 (00:14→11:50)
[2022-10-24] MEDS: LORazepam 2 MG/ML VIAL IV PRN ×5 (00:25→13:18)
[2022-10-24] MEDS: ALBUTEROL 2.5 MG/3 ML NEB SOL NEB SCH ×4 (02:30→19:50)
[2022-10-24] MEDS: FENTANYL CITR 100 MCG/2 ML IV PRN ×3 (03:38→20:21)
[2022-10-24 04:32] LABS: Absolute Lymphocytes (CBC) 1.4 K/uL (0.7-4.9); Hematocrit 39.8 % (36.0-45.0); Lymphocytes % 6.4 % (15.3-44.8); MCV 88.6 fL (80-100); MPV 10.5 fL (7.6-11.3); Platelets 247 thou/uL (152-406); RBC Red Blood Cell Count 4.49 M/uL (3.86-4.86)
[2022-10-24 04:51] LABS: Magnesium 1.7 mg/dL (1.6-2.4); Potassium 4.3 mEq/L (3.5-5.1)
[2022-10-24 05:33] LABS: Blood O2 Saturation 97.1 % (92-98.5)
[2022-10-24] MEDS: CLINDAMYCIN 600MG/D5W 50 ML IV SCH ×2 (07:46→20:21)
--- NOTE | 2022-10-24 09:02 | RAD REPORT ---
[facility] 6:31 am CLINICAL HISTORY: vented COMPARISON: Chest Single View dated 10/23/2022; Chest Single View dated 10/20/2021 TECHNIQUE: Portable AP view of the chest. FINDINGS: Patient rotation limits evaluation. Endotracheal tube unchanged in position, with its tip projecting approximately 2 cm above the leeanna. Central interstitial prominence, may have worsened si nce the prior exam. Left basilar atelectasis, stable. The lungs are otherwise clear. No pneumothorax or effusion. The cardiomediastinal contours are unremarkable. IMPRESSION: Central interstitial prominence may have slightly worsened since the prior exam, allowin g for patient rotation. This could reflect a degree of central congestion. No other acute cardiopulmonary process.
--- NOTE | 2022-10-24 10:24 | OP ---
Date of Procedure: 10/23/2022 Surgeon: REMIGIO PARRA DO, Otorhinolaryngology Life Science Technical Officer Surgeon: Bandar Ryan MD General/Trauma Surgeon Primary Care Physician: Unknown. Preoperative Diagnoses: 1. Primary hyperparathyroidism secondary to suspected 1 or multiple parathyroid glands. 2. Hypercalcemia. Postoperative Diagnoses: 1. Primary hyperparathyroidism secondary to suspected 1 or multiple parathyroid glands. 2. Hypercalcemia. Procedures Performed: 1. Removal of 3 suspected parathyroid adenomas for primary hyperparathyroidism under general anesthesia. 2. Utilization of [place] [employer] nerve monitoring system. 3. Utilization of the parathyroid PT Eye localization system. 4. Control of intraoperative bleeding, left superior pole of the neck. Anesthesia: General endotracheal anesthesia was administered. I also infiltrated approximately 10 mL of 1% lidocaine with 1:100,000 epinephrine at the incision site which was marked approximately 2 cm above the sternal border. Estimated Blood Loss: Approximately 250 mL. Findings: The patient had 3 suspected inflamed parathyroid glands located in the following areas; 1 was located just inferior to the inferior edge of the thyroid gland medially, another gland was located at the superior pole of the left thyroid lobe and the largest was located on posteroinferior thyroid lobe at the left tracheoesophageal groove. Specimens: Submitted to Pathology for evaluation. We did get a frozen section on the first specimen, which was at the inferior edge of the thyroid gland, which demonstrated hypercellularity consistent with a parathyroid adenoma. The other specimens were sent for permanent sections. Complications: Near the end of the case, the patient had significant oozing of blood from the superior pole where the left superior section of the thyroid was located. Please see the information in the body of the dictation for more details. Disposition: The patient was transferred to the ICU in stable, but guarded condition. Indication For Procedure: Patient is a pleasant 81-year-old female who presented to my outpatient clinic with evidence of hypercalcemia and primary hyperparathyroidism. A sestamibi scan, as well as a CT scan was ordered and there was evidence of potentially 2 parathyroid adenomas as measured on the CT scan and confirmed on sestamibi. These were indications to bring the patient to operative suite for the above-mentioned procedures. She understood. All questions were answered. Risks versus benefits, complications were explained in detail and a consent form was signed, which was placed in the chart. Description Of Procedure: Patient was transferred from the preoperative holding area to the operative suite by Department of Anesthesia, placed on the operating table supine, sedated and intubated in normal fashion. NIMs endotracheal tube was inserted and calibrated to the patient with grounding electrodes. I infiltrated approximately 10 mL of 1% lidocaine with 1:100,000 epinephrine at the incision site. The patient was sterilely prepped and draped. An incision was made approximately 2 cm above the sternal notch with a #15 blade scalpel through the skin and down to subcutaneous tissue. I then switched over to monopolar electrocautery and we divided the dehiscent platysma and then were easily able to find bilateral strap muscles which were then divided midline and I utilized monopolar electrocautery on a setting of 20 for coagulation to get down to the overlying thyroid fascia. I had to divide the left strap muscle due to inability to retract adequately to expose the posteroinferior edge of the thyroid gland. I did dissect along the inferior pole and confirming with our parathyroid localizer, I was able to find 1 parathyroid gland which was carefully dissected with hemostats, DeBakey and a #15 blade scalpel. The gland was removed. I then utilized a stick-tie to ligate any vasculature around the parathyroid gland. We were able to obtain a frozen section analysis of the gland and it appeared that it was a parathyroid adenoma suspicious due to hypercellularity. We then karen an intact PTH at this point and had to wait for the results. The preoperative day surgery results were 121, and surprisingly, this particular intact PTH was 125.6, therefore it was necessary that I continue to explore for any other potential culprit glands. So my attention was placed to superior pole, because I did detect an enlarged parathyroid gland there. I did divide the superior pole in order to access the area of the tracheoesophageal groove. I noted that she was very tethered down in this region. So, I utilized a LigaSure to clamp, cauterize and divide the superior pole vessels. I then dissected carefully around the superior pole of parathyroid gland and then removed it carefully and then used a stick-tie to ligate any vasculature underneath. I then explored again, inferiorly, an area of concern, which was located at posteroinferior edge of the thyroid gland and utilizing the parathyroid localizer, the infrared laser was measuring really high levels and I suspected that this was another adenoma. Thus, I dissected carefully around it and removed it and then used bipolar cautery for any areas of bleeding. As soon as I handed the parathyroid gland off the field, the patient had immediate and exuberant oozing of blood located near the superior pole. We utilized Yankauer suction to try to find the vessel or vessels that were bleeding and I placed approximately 5 hemostats at the suspected areas of bleeding. The patient then stopped oozing and it was my decision to call in Dr. Bandar Ryan, General Surgery, for a second pair of eyes and assistance. It was at this point that we both decided to try and locate the culprit vessel or vessels and as we were doing so we ligated a vessel with a tie as well as utilized surgical clips. We also placed Surgicel matrix in the area of bleeding with Ray-Alisia on top to tamponade the bleeding and spent 30 to 60 minutes just carefully looking at the area to make sure all the bleeding had subsided. At this point, we decided to carefully take off the each of the hemostats that were placed by flashing them initially to make sure that there was no bleeding and then we removed each one by one. We then took the Surgicel out and examined again and she still had some oozing, but much improved than the initial bleeding episode. It was decided at this point to lay down a Surgicel matrix at the site of the culprit vessel or vessels and then we used Tisseel fibrin glue and applied that over the Surgicel. Again, overall, we examined the area over a total period of 30 to 60 minutes to make sure that this patient was not going to rebleed. Once we were confident, we did a Valsalva up to 30 mmHg and we did not see any rebleeding. It was at this point that we decided to proceed to close the incision. I placed one 3-0 Vicryl suture into the strap muscle and closed it loosely. I then placed a Vikas-Cardenas drain into the wound bed as well as Avitene and set the Vikas-Cardenas drain to bulb suction. I then reapproximated the platysma and subcutaneous and dermal tissue with 3-0 Vicryl, but it was sutured very loosely in the case that we would have to go back in and control any postoperative bleeding. I then loosely reapproximated the epidermis with 4- 0 Monocryl in a continuous running fashion. The patient was immediately taken to our PACU unit after she was reintubated with a normal ET tube and she was placed into an upright sitting position. She was stable in PACU and then it was decided to place her in the Intensive Care Unit for observation for a period of at least 48 hours. She tolerated the procedure well and she is in stable but guarded condition and will be monitored 01/09. ELDER/ALESHA Voice ID: [id number] Report ID: [id number] KARLA
--- NOTE | 2022-10-24 12:06 | PN ---
Date of Progress Note: 10/24/2022 Subjective: This 81-year-old female patient was seen and examined in the ICU bed, this morning. Lindsay thompson looks stable and sedated, but she was able to open her eyes and I believe she acknowledged my pr esence. Patient had serosanguineous drainage approximately 18 mL in the past 12 hours. Per nursing staff, there were no other findings, concerns, or complications. Objective: General: A Vikas-Cardenas drain is intact with excellent seal with approximately 10 mL of drainage noted that was serosanguineous. Neck: Supple. I do not detect any areas of suspected hematoma or blood oozing from the incision sit e. The incision site is clean and intact. Neck circumference has not increased since measurement in the immediate postoperative period. No other findings. Laboratory Data: Notes intact PTH drawn in the immediate postoperative period was 12 which is signif icantly improved from the preoperative lab value of 121, and intraoperative blood draw of 125.6. Imm ediate postoperative chest x-ray is normal with the endotracheal tube intact and the lungs are clear. No evidence of aspiration. Diagnoses: 1.Primary hyperparathyroidism, status post parathyroid exploration and removal of 3 culprit parathyr oid glands. 2.Unexpected intraoperative bleeding, currently controlled and patient is stable, but guarded. Plan: 1.We will keep her sedated for today and monitor drain output. 2.Possible extubation in 24 hours. 3.I discussed the plan with the family via telephone. 4.Recommendations from Dr. Ryan and Dr. Solorzano are much appreciated. ELDER/ALESHA Voice ID: [id number] Report ID: [id number]
--- NOTE | 2022-10-24 12:51 | OP ---
Date of Procedure: 10/23/2022 IMMEDIATE POSTOPERATIVE NOTE Surgeon: REMIGIO PARRA Cnc Milling Machine Operator: Bandar Ryan M.D., General/Trauma Surgeon. Preoperative Diagnoses: 1. Primary hyperparathyroidism. 2. Hypercalcemia. Postoperative Diagnoses: 1. Primary hyperparathyroidism. 2. Hypercalcemia. 3. Intraoperative bleeding. Name Of Procedures Performed: 1. Parathyroid gland exploration and removal of 3 suspected parathyroid adenomas under general and local anesthetic utilizing the nerve integrity monitoring system and the parathyroid PTeye localizer. 2. Control of intraoperative bleeding. Findings Of The Procedure: Three suspected parathyroid glands located; one in the tracheoesophageal groove, inferior lobe of the left thyroid gland, and superior lobe of the thyroid gland. Right parathyroid glands were located and found to be of normal size. Two right parathyroid glands were located. Specimens Removed: Three suspected parathyroid glands located in the left area of the neck adjacent to the thyroid gland. Estimated Blood Loss: Approximately 250 mL intraoperatively. Operative Report: Please see detailed operative report, which gives the indications, intraoperative complications, and a full description of the procedure. ELDER/ALESHA Voice ID: [id number] Report ID: [id number] KARLA
[2022-10-24] MEDS: propofoL 1,000 MG/100 ML VIAL IV SCH ×2 (13:18→21:22)
[2022-10-24] MEDS: NA CHLORIDE 0.9% 1,000 ML IV SCH (16:17)
--- NOTE | 2022-10-24 16:37 | EKG ---
Test Date: 2022-10-23 Test Time: 07:08:55 Travel Registered Nurse Oncology: KANA MEASUREMENT RESULTS: Intervals: Rate: 60 MI: 178 QRSD: 92 QT: 408 QTc: 408 [place]: P: 56 MI: 178 QRS: -57 T: 83 INTERPRETIVE STATEMENTS: Normal sinus rhythm Left axis deviation Pulmonary disease pattern Nonspecific ST and T wave abnormality Abnormal ECG Compared to ECG 10/20/2021 19:36:02 ST (T wave) deviation now present Sinus bradycardia no longer present Incomplete right bundle-branch block no longer present Myocardial infarct finding no longer present Electronically Signed On 10-24-22 16:32:39 CDT by Jono Moya
[2022-10-25] MEDS: LORazepam 2 MG/ML VIAL IV PRN (00:17)
[2022-10-25] MEDS: ALBUTEROL 2.5 MG/3 ML NEB SOL NEB SCH ×4 (01:10→20:11)
[2022-10-25] MEDS: FENTANYL CITR 100 MCG/2 ML IV PRN ×2 (01:47→08:01)
[2022-10-25] MEDS: MIDAZOLAM HCL 2 MG/2 ML INJ IV PRN (06:16)
[2022-10-25] MEDS: propofoL 1,000 MG/100 ML VIAL IV SCH (06:16)
[2022-10-25] MEDS: CLINDAMYCIN 600MG/D5W 50 ML IV SCH (08:54)
[2022-10-25] MEDS ORDERED: DEXMEDETOMIDINE HCL 200 MCG in NA CHLORIDE 0.9% 98 ML IV SCH (10:00)
--- NOTE | 2022-10-25 11:29 | P.CNS ---
Date of Consult: 10/25/22 Reason for Consult: Vent management Chief Complaint: Patient on a ventilator s/p parathyroidectomy complicated with bleeding History of Present Illness: Patient is 81 years of age she was undergoing a parathyroidectomy was complicated with significant bleeding patient was intubated and transferred here to the ICU and was to continue to keep her sedated monitor bleeding Allergies Penicillins Allergy (Verified 10/23/22 07:59) Anaphylaxis Home Medications: Amlodipine Besylate 10 mg PO DAILY 10/20/22 Aspirin [Adult Aspirin Regimen] 81 mg PO DAILY 10/20/22 Atorvastatin Calcium [Lipitor] 20 mg PO BEDTIME 10/20/22 Latanoprost Ophth [Xalatan 0.005%*] 2.5 ml EACH EYE BEDTIME 10/20/22 Levothyroxine Sodium [Synthroid] 125 mcg PO DAILY 10/20/22 Metoprolol Tartrate [Lopressor] 50 mg PO BID 10/20/22 - Past Medical/Surgical History -: HTN -: Hypothyroidism -: breast cancer -: Hyperlipidemia -: left cochlear implant -: bilateral mastectomy - Social History Alcohol use: No CD- Drugs: No Caffeine use: Yes Place of Residence: Home Review of Systems is unable to be obtained Physical Examination Temp Pulse Resp BP Pulse Ox 97.6 F 75 19 100/65 96 10/25/22 08:00 10/25/22 10:00 10/25/22 10:00 10/25/22 10:00 10/25/22 08:01 General: Unresponsive Respiratory: Clear to auscultation bilaterally Cardiovascular: No edema, Normal S1 S2 Gastrointestinal: Normal bowel sounds, Soft and benign Laboratory Data (last 24 hrs) 10/24/22 15:29 Potassium 4.4 - Problems (1) Encounter for adjustment or management of ventricular assist device Current Visit: Yes Status: Acute Plan: Patient is 81 years of age. To the ICU for vent management s/p parathyroidectomy complicated with significant bleeding is doing much better patient's hemoglobin is stable White count is mildly elevated vital signs are all stable chest x-ray reviewed endotracheal tube satisfactory oxygenation satisfactory minimal O2 and is currently agitated on propofol we will plan to change her over to dexmedetomidine wean her off propofol and sedation plan to wean and extubate today cussed with general surgery
--- NOTE | 2022-10-25 14:21 | PN ---
Date of Progress Note: 10/25/2022 Subjective: Patient is seen and examined. Quite agitated, trying to wean off the vent. No issues overnight. No complaints of dyspnea, neck swelling, or bleeding from the neck incision site. Physical Examination: Neck: Supple. Trachea midline. Tubes/Drains: Vikas-Cardenas drain intact with approximately 10 mL of serosanguineous fluid output for the past 12 hours. Laboratory Data: Hemoglobin is stable, above 13.0; hematocrit is above 41.0. Diagnoses: 1. Primary hyperparathyroidism and hypercalcemia, status post 3 gland parathyroidectomy and neck exploration. 2. Unexpected intraoperative bleeding. Plan: 1. Dr. Ryan and I waited at bedside for the patient to wean off the vent. Patient was placed on CPAP and tolerated 5-10 mmHg until we felt comfortable to extubate. Patient was extubated and after being given Precedex, she tolerated the extubation well. Patient was able to open her eyes and I was able to communicate with her. 2. We will keep the patient in ICU bed and will try to start ice and liquids. As she tolerates p.o. liquids, she may advance as tolerated. 3. Plan is to observe throughout today, remove Freeman catheter and get out of bed tomorrow, with plans to d/c home in a day or so, but we will keep the Vikas-Cardenas drain in for now. Thank you, Dr. Ryan and Dr. Solorzano for your recommendations and any additional recommendations are appreciated. ELDER/ALESHA Voice ID: [id number] Report ID: [id number] KARLA
[2022-10-25] MEDS: NA CHLORIDE 0.9% 1,000 ML IV SCH (16:37)
[2022-10-25] MEDS ORDERED: HYDROCODONE/APAP 7.5/325 MG TAB PO PRN (22:46)
[2022-10-26] MEDS: ALBUTEROL 2.5 MG/3 ML NEB SOL NEB SCH ×3 (00:15→07:45)
[2022-10-26] MEDS: NA CHLORIDE 0.9% 1,000 ML IV SCH ×2 (03:00→23:00)
[2022-10-26 07:10] VITALS: BMI 40.8
[2022-10-26] MEDS ORDERED: DEXMEDETOMIDINE HCL 1,000 MCG in NA CHLORIDE 0.9% 490 ML IV SCH (07:20)
--- NOTE | 2022-10-26 10:44 | P.PN ---
Subjective Date of Service: 10/26/22 Chief Complaint: Patient on a ventilator s/p parathyroidectomy complicated with bleeding Subjective: Improving (Patient is improving doing well was extubated yesterday she is alert responsive cooperative a little hoarse) Review of Systems General: Weakness Respiratory: Shortness of Breath Physical Examination - Vital Signs Temperature: 98.2 F Blood Pressure: 117/58 Pulse: 87 Respirations: 22 Pulse Ox (%): 92 - Physical Exam General: Alert, Oriented x3, Mild distress Respiratory: Clear to auscultation bilaterally, Diminished Cardiovascular: No edema, Regular rate/rhythm - Studies Laboratory Data (last 24 hrs) 10/25/22 15:34 Potassium 3.9 Assessment And Plan - Current Problems (Diagnosis) (1) S/P parathyroidectomy Current Visit: Yes Status: Acute Plan: Patient is s/p parathyroidectomy placated by bleeding she is doing much better patient extubated no further episodes of bleeding hemoglobin stable White count is mildly elevated patient is on clindamycin will advance diet Labs reviewed hemoglobin stable vital signs all stable stable to go to the floor
[2022-10-26] MEDS ORDERED: ALBUTEROL 2.5 MG/3 ML NEB SOL NEB PRN (10:45)
--- NOTE | 2022-10-26 11:34 | P.PN ---
Date of Service: 10/26/22 ENT Progress Note Patient seen and examined. Patient reports hoarseness but denies dyspnea. She is tolerating po liquids at this time and is having little neck pain. No other complaints today. Exam: Neck supple/trachea midline and LIONEL drain intact with minimal serous fluid. Output in last 12 hours was 10 ml. Voice is low pitch quality but no aphonia and improved hypophonia from yesterday. Impression: 1. Primary hyperparathyroidism s/p neck exploration and removal of 3 parathyroid glands, suspected for adenoma. 2. Sudden intraoperative bleeding, resolved. Plan: 1. Recommend to remove Freeman catheter, and get patient into chair with help from PT/OT. 2. Continue to encourage po fluids/solids. May restart home meds per Dr. Olvin bowling. 3. Serum intact PTH and Calcium drawn today, treat any hypocalcemia if needed. 4. Hope to d/c tomorrow if continues to improve.
--- NOTE | 2022-10-26 11:40 | P.OP ---
Date of Service: 10/23/22 Addendum to Operative Report During control of intraoperative bleeding, Dr. Ryan and I placed a doppler on the a large left neck vessel (most likely internal jugular vein) to confirm that this was possibly the feeding vessel. I also explored the right side of the neck while waiting on intact PTH results and located two normal-appearing parathyroid glands and the PT Eye infrared localizer helped to discern that these were additional glands. These glands were left in place.
--- NOTE | 2022-10-27 09:13 | CON ---
Date of Consultation: 10/24/2022 Date Of Surgery: 10/24. Brief History Of Present Illness: The patient is an 81-year-old woman, who was seen Dr. Tong for con cern of hyperparathyroidism. She ultimately was taken to the operating room on 10/24. The patient w as taken for a parathyroidectomy with Dr. Tong. During the dissection, Dr. Tong encountered some con cerning bleeding in the area of the left thyroid. Ultimately, Dr. Tong asked for my assistance as an intraoperative consult to come and help evaluate the area for bleeding. As such, I entered the room . Dr. Tong achieved pressure control of bleeding from the area of the left upper neck posterior supe rior to the thyroid. I used various methods including pressure as well as Surgicel and helped explor e the area, several visible vessels were identified, which were venous in appearance. There did not appear to be arterial bleeding at this area. It appeared to be significant venous bleeding. As such , we placed the position of the patient's slightly more head up. I held additional pressure in the a miguel for approximately 3 minutes, then removed the gauze. There was some mild bleeding at this point. As such, I packed the wound with a gauze at this point and left pressure there for approximately 5 minutes. At this point, I hydrated the gauze, removed it, placed Surgicel in the area. After, no ad ditional bleeding was encountered. Several of the smaller bleeding vessels were clipped using medium clip branch sales and service representative with good hemostasis at this point. After clips were applied on several vessels which appeared to be predominantly venous, clamps were removed, which were previously placed. I placed a D oppler on the carotid artery, which appeared to be nice and patent at this point. I believe the sign ificant bleeding was likely from a branch of the jugular vein. At this point, I placed a Surgicel in to the field and left it there without pressure and placed the patient back in neutral position. The re was no significant accumulation of bleeding at this point and as such, we had to seal to the area and hemostasis was achieved. At this point, the area was copiously irrigated and a drain was placed at this point. I left the room after the hemostasis was achieved and Dr. Tong completed the procedur e with closure of the strap muscles. Please see Dr. Tong's note for full details regarding intraoper ative findings. The patient had good hemostasis at the end of the procedure, had minimal blood loss during my portion of the procedure of less than probably 25 to [address] Tong's note, katherin noriega, for full details on complete blood loss and other operative findings. Thank you for this interesting consult. JEFFREY/ALESHA Voice ID: [id number] Report ID: [id number]
[2022-10-27] MEDS ORDERED: METOPROLOL TARTRATE 5 MG/5 ML INJ IV ONE (10:00)
[2022-10-27] MEDS ORDERED: HYDRALAZINE HCL 20 MG/ML VIAL ONE (10:00)
[2022-10-27 14:04] VITALS: O2SAT 97
[2022-10-27 15:00] VITALS: TEMP 98
[2022-10-27 15:01] VITALS: BP 127/71
--- NOTE | 2022-10-30 08:52 | P.DS ---
Admission Date: 10/24/22 Discharge Date: 10/30/22 Primary Care Provider: Dr. Diane Whyte Disposition: ROUTINE DISCHARGE Discharge Condition: GOOD Reason for Admission: Patient on a ventilator s/p parathyroidectomy complicated with bleeding Consultations: Dr. Ryan and Dr. Solorzano Procedures: Parathyroidectomy and exploration with NIMS and PT Eye localization Brief History of Present Illness: Patient presented to clinic with little/no symptoms of hyperparathyroidism but had high intact PTH and hypercalcemia. It was decided that a parathyroid expl oration and removal of suspect glands was necessary. She underwent routine surgery until near end of case when she developed intraoperative venous bleeding. With the help of Dr. Ryan, we were able to control it with clips, surgical ties, surgicel and Tisseel fibrin glue. She was then placed in ICU for observation and to keep intubated, in the case she had a rebleed. We were able to extubate POD #3 and it went smoothly with no issues. The LIONEL drain was also removed right before d/c as she had little serous fluid output. Hospital Course: Patient was stable throughout her hospital stay and was successfully weaned off the vent and extubated successfully with no issues. Vital Signs/Physical Exam: Temp Pulse Resp BP Pulse Ox 98 F 71 20 127/71 96 10/27/22 12:00 10/27/22 14:00 10/27/22 14:00 10/27/22 14:00 10/27/22 14:00 Laboratory Data at Discharge: WBC 21.60 thou/uL (4.3-10.9) H 10/24/22 04:10 Hgb 13.3 g/dL (12.0-15.0) 10/24/22 04:10 Hct 39.8 % (36.0-45.0) 10/24/22 04:10 Plt Count 247 thou/uL (152-406) 10/24/22 04:10 Sodium 137 mEq/L (136-145) 10/24/22 04:10 Potassium 3.9 mEq/L (3.5-5.1) 10/25/22 15:34 BUN 15 mg/dL (7-18) 10/24/22 04:10 Creatinine 0.82 mg/dL (0.55-1.02) 10/24/22 04:10 Glucose 192 mg/dL (74-106) H 10/24/22 04:10 Magnesium 1.7 mg/dL (1.6-2.4) 10/24/22 04:10 Triglycerides 96 mg/dL (<150) 10/24/22 04:10 Cholesterol 120 mg/dL (<200) 10/24/22 04:10 HDL Cholesterol 51 mg/dL (40-60) 10/24/22 04:10 Cholesterol/HDL Ratio 2.35 10/24/22 04:10 Home Medications: Amlodipine Besylate 10 mg PO DAILY 10/20/22 Aspirin [Adult Aspirin Regimen] 81 mg PO DAILY 10/20/22 Atorvastatin Calcium [Lipitor] 20 mg PO BEDTIME 10/20/22 Latanoprost Ophth [Xalatan 0.005%*] 2.5 ml EACH EYE BEDTIME 10/20/22 Levothyroxine Sodium [Synthroid] 125 mcg PO DAILY 10/20/22 Metoprolol Tartrate [Lopressor] 50 mg PO BID 10/20/22 clindamycin HCL [Clindamycin HCl] 300 mg PO TID #16 cap 10/27/22 New Medications: clindamycin HCL [Clindamycin HCl] 300 mg PO TID #16 cap Physician Discharge Instructions: PROBLEM: S/p Parathyroidectomy GOAL: Clear understanding of disease process INSTRUCTIONS: Follow up in on 11/04/22. Please call for appointment. Orders for Clindamycin 300mg PO TID. Please take first dose 10/27/22 @ 2100. Wound care orders: Clean incision area and lather with Neosporin. Manage pain by alternating between Tylenol and Ibuprofen as directed by the bottle for pain management. If you have any questions or concerns regarding hospital stay, feel free to call . If you have any concerns regarding incision or surgery, feel free to call or walk in to Dr. Tong's office or go to your nearest emergency room. Diet: Chopped/Soft Activity: As Tolerated Follow up with an ENT (Retail Administrative Assistant) of your choice: Shira Tong [address] [place] [address], [place] [address] DME DME: Date Ordered: Name of Company: [employer] Services Needed: Name of Company: Date or Referral: IMMUNIZATION Influenza Vaccine Indicated: Influenza Vaccine Given: Date Given: Pneumonia Vaccine Indicated: No Pneumonia Vaccine Given: Date Given:
== END 2022-10-27 14:58 | disposition home or self-care (01) | DRG 626 ==
LOC: OR 06:52 → 3RD-ICU 15:00 → OBSVTOIN 10-24 13:39
PROVIDERS: ADMIT Otolaryngology Facial Plastic Surgery; ATTEND Otolaryngology Facial Plastic Surgery
PROC: 0GBL0ZZ Excision of Right Superior Parathyroid Gland, Open Approach (ICD-10-PCS; 2022-10-23)
PROC: 0W360ZZ Control Bleeding in Neck, Open Approach (ICD-10-PCS; 2022-10-23)
PROC: 5A1945Z Respiratory Ventilation, 24-96 Consecutive Hours (ICD-10-PCS; 2022-10-23)
PROC: 0BH17EZ Insertion of Endotracheal Airway into Trachea, Via Natural or Artificial Opening (ICD-10-PCS; 2022-10-23)
PROC: 0GBP0ZZ Excision of Left Inferior Parathyroid Gland, Open Approach (ICD-10-PCS; principal; 2022-10-23 08:15)
DX: E21.0 Primary hyperparathyroidism (principal); E36.01 Intraoperative hemorrhage and hematoma of an endocrine system organ or structure complicating an endocrine system procedure; E78.5 Hyperlipidemia, unspecified; Z88.0 Allergy status to penicillin; Z85.3 Personal history of malignant neoplasm of breast; Z79.82 Long term (current) use of aspirin; Z90.13 Acquired absence of bilateral breasts and nipples; Z79.890 Hormone replacement therapy; Z79.899 Other long term (current) drug therapy; Y83.8 Other surgical procedures as the cause of abnormal reaction of the patient, or of later complication, without mention of misadventure at the time of the procedure
CPT/HCPCS: 36415; 71045; 80048; 80061; 81001; 82310; 82805; 83735; 83970; 84132; 85014; 85018; 85025; 88305; 88331; 88333; 93005; 94002; 94003; 94640; 97116; 97161; 97530; G0378; G0379; J0360; J0461; J1100; J2001; J2250; J2405; J2704; J3010; J7030; J7040; J7120; J7613